=== PATIENT | male | born 1940 | race Caucasian/White ===

== ENCOUNTER 2023-11-25 23:45 | Emergency (ER) | payer MEDICARE, BC, SELFPAY ==
[2023-11-26 00:01] VITALS: BP 146/82
[2023-11-26 00:50] LABS: % Basophils 0.6 % (0-2); % Eosinophils 1.8 % (0-6); % Immature Granulocytes 1.2 % (0-0.5); % Lymphocytes 15.2 % (20.5-51.1); % Monocytes 4.6 % (1.7-9.3); % Neutrophils 76.6 % (42.2-75.2); Absolute Basophils 0.1 10^3/uL (0-0.2); Absolute Eosinophils 0.2 10^3/uL (0-0.7); Absolute Immature Granulocytes 0.2 10^3/uL (0-0.05); Absolute Lymphocytes 1.9 10^3/uL (1.2-3.4); Absolute Monocytes 0.6 10^3/uL (0.1-0.6); Absolute Neutrophils 9.7 10^3/uL (1.4-6.5); Hematocrit 38.1 % (39.0-52.0); Hemoglobin 13.7 g/dL (13.0-18.0); Mean Corpuscular Hgb 32.9 pg (27.0-31.0); Mean Corpuscular Volume 91.6 fL (80.0-94.0); Mean Platelet Volume 10.2 fL (7.4-10.4); Nucleated Red Blood Cells % 0 % (-); Platelet Count 178 10^3/uL (130-400); Red Blood Cell Count 4.16 10^6/uL (4.70-6.10); Red Cell Dist. Width 13.9 % (11.5-14.5); White Blood Cell Count 12.7 10^3/uL (4.8-10.8)
[2023-11-26 01:00] LABS: ALT (SGPT) 23 U/L (0-50); AST (SGOT) 23 U/L (17-59); Albumin 4.1 g/dl (3.5-5.0); Alkaline Phosphatase 176 U/L (38-126); Blood Urea Nitrogen 28 mg/dl (9-20); Calcium 9.5 mg/dl (8.4-10.2); Carbon Dioxide 26 mmol/L (22-30); Chloride 104 mmol/L (98-107); Glucose 262 mg/dl (70-99); Lipase 119 U/L (23-300); Potassium 3.1 mmol/L (3.5-5.1); Sodium 138 mmol/L (135-145); Total Protein 6.5 g/dl (6.3-8.2); eGFR 46.19
[2023-11-26 03:48] VITALS: BP 119/77
[2023-11-26 04:00] VITALS: BP 141/82
[2023-11-26 04:09] VITALS: BMI 31.3
[2023-11-26 04:30] LABS: Troponin I < 0.012 ng/ml
[2023-11-26 05:00] VITALS: BP 115/58
--- NOTE | 2023-11-26 05:12 | ED.GENMED ---
History of Present Illness
General
Chief Complaint: Abdominal Symptoms
Source: patient and previous radiology exam (Previous CT abdomen pelvis 2021 showing chronic dissection of infrarenal abdominal aorta with mild aneurysmal dilation of 3 cm, stable and unchanged from previous 2018. Also note of cholelithiasis)
Exam Limitations: none
Time Seen by Provider: 11/26/23 04:58
Nursing documentation reviewed up to this point in time: agreed with
Travel History
Have you had any contact with someone who has COVID-19?: No
Do you have any symptoms of coronavirus? Fever > 100 degrees, chills, cough, shortness of breath, sore throat, loss of taste or smell, muscle aches, or headache?: No
History of Present Illness
History of Present Illness:
This is an 83-year-old gentleman who resides at home. 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 Wade and thus far
unchanged over the past 5 to 6 years.
He presents with somewhat abrupt onset of moderate to severe epigastric abdominal pain that began around 10/11 PM tonight while reclining in his lounger. Pain was nonradiating and no associated symptoms. He did pass a normal bowel movement and
then shortly after that passed a loose nonbloody stool. He states he also made himself throw up and attempt to relieve the pain which was unsuccessful.
After doing so he has had no recurrent vomiting and no recurrent diarrhea. Epigastric pain has persisted but slowly resolved while waiting in the waiting room.
He admits to 2 similar episodes of epigastric pain in 2018 and then again 2021.
ED record reviewed from 2018, CAT scan at that time showed paraesophageal hiatal hernia. He was evaluated by general surgery but pain had resolved, no indication for surgical intervention and he was discharged home with no return of pain until 2021
while in [place]. He reports uneventful ED evaluation at that time, discharged to home.
On CT abdomen pelvis 2018 and then again 2021 there is note of several calcified gallstones.
Past History
Past History
ED Past Medical History: CAD, CVA (TIA), HTN, NIDDM and Other (Borderline Diabetes ); Negative [place]
ED Past Surgical History: Cardiac (Stents)
Social History
Tobacco: Non-smoker
Alcohol: Occasional
Drug: None
Personal:
Living: with family
Employment: Retired
Family History
Family History: CAD
Phy Exam
Physical Exam
Physical Exam:
GENERAL: 83-year-old gentleman appears his stated age, bright and alert, pleasant, appears in no acute distress.
EYE: anicteric
NECK: Supple, nontender, no meningismus, no significant adenopathy.
ENT: oral mucosa is moist. No rhinorrhea.
CARDIAC: Regular rate and rhythm. no murmur.
LUNGS: Clear breath sounds bilaterally, no acute respiratory distress, no wheezes/rales/rhonchi
ABDOMEN: Soft, nondistended, without focal tenderness, no r/g, no cvat. normoactive BS.
NEUROLOGICAL: Alert and oriented x3, no focal neuro deficits. Gait is ugaled and steady.
SKIN: Warm and dry, normal color, skin intact. No rash.
MUSCULOSKELETAL: No C/C/E. peripheral pulses are full and equal b/l. No palpable tenderness.
PSYCH: Normal and appropriate interaction.
Course
Orders/Labs/Results
Orders:
Orders
11/26/23 00:14
CMP [Comprehensive Metabolic Panel] Urgent
Complete Blood Count/With Diff Urgent
Lipase Urgent
11/26/23 03:50
Electrocardiogram (*1) Urgent
Reason for Study: Chest Pain
11/26/23 03:58
Troponin I Routine
11/26/23 05:10
Potassium Chloride [KCl] 20 meq PO NOW STA
Abnormal Lab Results
11/26/23
00:14
WBC 12.7 H 10^3/uL
(4.8-10.8)
RBC 4.16 L 10^6/uL
(4.70-6.10)
Hct 38.1 L %
(39.0-52.0)
MCH 32.9 H pg
(27.0-31.0)
Abs Immat Gran (auto) 0.2 H 10^3/uL
(0-0.05)
Absolute Neuts (auto) 9.7 H 10^3/uL
(1.4-6.5)
Immature Gran % 1.2 H %
(0-0.5)
Neutrophils % 76.6 H %
(42.2-75.2)
Lymphocytes % 15.2 L %
(20.5-51.1)
Potassium 3.1 L mmol/L
(3.5-5.1)
BUN 28 H mg/dl
(9-20)
Creatinine 1.5 H mg/dL
(0.7-1.3)
Glucose 262 H mg/dl
(70-99)
Alkaline Phosphatase 176 H U/L
(38-126)
11/26/23 00:14
11/26/23 00:14
Vital Signs
Initial and Last Documented VS:
Initial Vital Signs
Temp Pulse Resp BP Pulse Ox
97.5 F 92 24 146/82 98
11/26/23 00:01 11/26/23 00:01 11/26/23 00:01 11/26/23 00:01 11/26/23 00:01
Last Documented Vital Signs
Temp Pulse Resp BP Pulse Ox
97.5 F 89 22 130/76 97
11/26/23 00:01 11/26/23 05:52 11/26/23 05:52 11/26/23 05:52 11/26/23 05:45
MDM/Problems Addressed
Differential Diagnosis Includes:
Patient presents with acute epigastric abdominal pain that began around 10/11 PM.
Pain has since resolved.
Similar episodes of pain in 2018 and again 2021.
CT abdomen pelvis 2021 as well as 2018 does note cholelithiasis and epigastric abdominal pain may be acute biliary colic in nature. Other consideration is recurrent hiatal hernia, gastritis, gastroenteritis, ACS.
Labs show mildly elevated white blood cell count.
Creatinine is mildly elevated at 1.5, has trended up from 2018 of 1.0. Patient reports only vomiting once as well as only passing 1 loose stool and thus acute dehydration is unlikely.
Alkaline phosphatase is mildly elevated and was noted mildly elevated 2018.
Troponin which was drawn 3:30 this morning is negative. With onset of pain around 10 PM, negative troponin greater than 5 hours after onset of pain, ACS is unlikely.
EKG is similar and unchanged to previous from 2018.
Mild hypokalemia. Has been repleted orally.
I highly suspect patient has been suffering with rare intermittent episodes of biliary colic especially in light of elevated alkaline phosphatase.
He does admit to eating a fatty meal at 5 PM consisting of ham and cheese sandwich.
Other consideration is recurrent hiatal hernia/paraesophageal hernia but reassuring that he is now pain-free and comfortable.
He has known 3 cm infrarenal abdominal aortic aneurysm with chronic dissection, follows regularly with Dr. Wade with reported unchanged and surveillance ultrasounds. Current symptoms or not consistent with infrarenal abdominal aortic aneurysm and it
is reassuring that he remains hemodynamically stable, without hypertension or hypotension and is pain-free.
Would recommend he initiate a strict low-fat diet and will refer to general surgery for follow-up.
Chronic conditions affecting care: DM and HTN
*Pulse Oximetry
Patient hypoxic: no
*EKG
Interpreted by ED Provider?: Yes
Comparison EKG: no changes (Unchanged from previous 2018)
Rate: normal
Rhythm: sinus and PVC's
[place]: normal axis
Interval: normal interval
QRS Pattern: poor R-wave progression
Ischemia: no ischemia
*Associate Broker Interpretation
Rate: normal
Interpretation: normal
Rhythm: sinus and PVC's
*Critical Care Note
Total Time (30-74mins, 75-104mins- exclusive of procedures): Not Applicable
ED Attending Note
-
Portions of this chart may have been created with voice recognition software.� Occasional wrong word or��sound alike� substitutions may have occurred due to the inherent limitations of voice recognition software.
Discharge Plan
Departure
Patient Disposition: Home (Routine Discharge)
Date of Disposition: 11/26/23
Time of Disposition: 05:25
Patient with high blood pressure during this ER visit?: No
Condition: Good
Discharge Problem:
Acute biliary colic, Cholelithiases
Instructions: Low Cholesterol, Saturated Fat, and Trans Fat Diet , Gallstones (DC)
Prescriptions:
No Action
aspirin 81 MG tablet,delayed release (DR/EC)
81 mg PO HS
atorvastatin 40 MG tablet
40 mg PO QPM Qty: 30 6RF
metformin 500 MG tablet
500 mg PO BID Qty: 0 0RF
Rx Instructions:
Okay to resume Saturday.
carvedilol 3.125 MG tablet
3.125 mg PO BID Qty: 60 6RF
lisinopril 20 MG tablet
40 mg PO DAILY
amlodipine 10 MG tablet
10 mg PO DAILY
esomeprazole magnesium [Nexium] 40 MG capsule,delayed release(DR/EC)
40 mg PO DAILY
hydrochlorothiazide 25 MG tablet
25 mg PO DAILY
fluticasone propionate 1 SPRAY spray,suspension
1 spray intranasal DAILYPRN PRN (Reason: congestion)
Referrals:
Nbail Barry MD [Active] - Call in 1-3 days for appt
Brayden Montgomery MD [Family Provider] - Call in 1-3 days for appt
Interventions
Interventions:
*Risk Screen - Suicide Last Done: 11/26/23 00:01
*General Assessment Last Done: 11/26/23 03:30
*Neglect/Abuse Screening Last Done: 11/26/23 00:01
ED- Fall Risk Assessment Last Done: 11/26/23 03:30
*ED COVID-19 Vaccine History Last Done: 11/26/23 03:30
MX-Rozaum-Kvexbsvjpr Assessment Last Done: 11/26/23 03:30
[2023-11-26] MEDS: KCL 20 MEQ PO (05:51)
[2023-11-26 05:52] VITALS: BP 130/76
[2023-11-26 06:00] VITALS: BP 130/76
== END 2023-11-26 06:00 | disposition home or self-care (01) ==
LOC: EMR 23:45
PROVIDERS: EMERGENCY PHYSICIAN Emergency Medicine; FAMILY PHYSICIAN Family Medicine
DX: K80.50 Calculus of bile duct without cholangitis or cholecystitis without obstruction (principal); E11.9 Type 2 diabetes mellitus without complications; I10 Essential (primary) hypertension
CPT/HCPCS: 99284; 80053; 83690; 84484; 85025; 93005

== ENCOUNTER → 2024-01-28 12:47 | Outpatient (REF) | payer MEDICARE, BC, SELFPAY | LOC: HWRAD 12:47 | PROVIDERS: ATTENDING PHYSICIAN Student in an Organized Health Care Education/Training Program; FAMILY PHYSICIAN Family Medicine | DX: N17.9 Acute kidney failure, unspecified (principal) | CPT/HCPCS: 76770 ==

== ENCOUNTER 2024-09-06 11:50 | Emergency (ER) | payer MEDICARE, BC, SELFPAY ==
[2024-09-06 11:56] VITALS: BP 156/85
[2024-09-06 12:32] VITALS: BMI 28.8
[2024-09-06] MEDS: ZOFRAN 4 MG IV (12:40)
[2024-09-06] MEDS: DILAUDID 0.5 MG IV (12:40)
[2024-09-06] MEDS: NSS 500 IV (12:45)
[2024-09-06 12:57] LABS: % Basophils 0.5 % (0-2); % Immature Granulocytes 0.4 % (0-0.5); % Lymphocytes 18.5 % (20.5-51.1); % Monocytes 6.7 % (1.7-9.3); % Neutrophils 71.9 % (42.2-75.2); Absolute Basophils 0.1 10^3/uL (0-0.2); Absolute Eosinophils 0.2 10^3/uL (0-0.7); Absolute Monocytes 0.7 10^3/uL (0.1-0.6); Absolute Neutrophils 7.7 10^3/uL (1.4-6.5); Hematocrit 32.4 % (39.0-52.0); Hemoglobin 11.4 g/dL (13.0-18.0); Mean Corp Hgb Conc. 35.2 g/dL (33.0-37.0); Mean Corpuscular Hgb 34.1 pg (27.0-31.0); Mean Platelet Volume 10.2 fL (7.4-10.4); Nucleated Red Blood Cells % 0 % (-); Platelet Count 152 10^3/uL (130-400); Red Blood Cell Count 3.34 10^6/uL (4.70-6.10); Red Cell Dist. Width 14.1 % (11.5-14.5); White Blood Cell Count 10.7 10^3/uL (4.8-10.8)
[2024-09-06 13:08] LABS: ALT (SGPT) 24 U/L (0-50); AST (SGOT) 22 U/L (17-59); Albumin 4.4 g/dl (3.5-5.0); Alkaline Phosphatase 98 U/L (38-126); Blood Urea Nitrogen 28 mg/dl (9-20); Calcium 9.6 mg/dl (8.4-10.2); Carbon Dioxide 24 mmol/L (22-30); Chloride 105 mmol/L (98-107); Estimated Creatinine Clearance 29 ml/min; Glucose 183 mg/dl (70-99); Potassium 4.6 mmol/L (3.5-5.1); Sodium 144 mmol/L (135-145); Total Bilirubin 1.2 mg/dl (0.2-1.3); Total Protein 6.9 g/dl (6.3-8.2); eGFR 34.57
[2024-09-06] MEDS: DILAUDID 1 MG IV (13:20)
[2024-09-06 13:25] VITALS: BP 139/72
[2024-09-06 14:00] VITALS: BP 127/59
[2024-09-06 15:03] VITALS: BP 131/54
[2024-09-06 15:10] LABS: Urine Albumin 1+ (Neg - Trace); Urine Bilirubin Negative (Negative); Urine Character Clear (Clear); Urine Color Yellow; Urine Glucose 2+ (Negative); Urine Ketone Trace (Negative); Urine Leukocyte Negative (Negative); Urine Nitrite Negative (Negative); Urine Occult Blood 1+ (Negative); Urine Specific Gravity 1.015 (<1.030); Urine Urobilinogen Negative (Neg - 1+)
[2024-09-06 15:36] LABS: Urine Red Blood Cell 0-2 /HPF (0-2); Urine White Cell None Seen /HPF (0-5)
[2024-09-06 16:00] VITALS: BP 136/58
--- NOTE | 2024-09-06 16:27 | ED.GENMED ---
History of Present Illness
General
Chief Complaint: Flank Pain
Source: patient and family
Exam Limitations: none
Time Seen by Provider: 09/06/24 12:15
History of Present Illness
History of Present Illness:
This is an 84-year-old male who presents with left flank pain. pt states that 2 days ago he felt something there but was mild. last night pain became more severe. also reports urinary hesitancy. admits to nausea. no fevers. no injury. no cp. no sob.
no rash
Past History
Past History
ED Past Medical History: CAD, CVA (TIA), HTN, NIDDM and Other (Borderline Diabetes ); Negative [place]
ED Past Surgical History: Cardiac (Stents)
Social History
Tobacco: Non-smoker
Alcohol: Occasional
Drug: None
Personal:
Living: with family
Employment: Retired
Family History
Family History: CAD
Phy Exam
Physical Exam
Physical Exam:
CONSTITUTIONAL Patient alert and oriented to person, place and time. Well-appearing. Vital signs reviewed.
HEAD atraumatic, normocephalic.
EYES eyelids normal to inspection, Extraocular muscles intact, Conjunctiva normal, Sclera normal.
NECK normal range of motion, Trachea midline, no jugular venous distention.
RESPIRATORY CHEST No respiratory distress noted, Chest expansion equal, Bilateral breath sounds clear.
CARDIOVASCULAR regular rate and rhythm, Heart sounds normal.
ABDOMEN abdomen nontender, Bowel sounds normal. No distention.
BACK normal inspection, no obvious deformities, no rash. no CVA TTP
UPPER EXTREMITY range of motion normal, Motor strength normal, no cyanosis, no edema.
LOWER EXTREMITY range of motion normal, Motor strength normal, no cyanosis, no edema.
NEURO Speech normal, No focal motor deficits, Sree coma scale 15, Memory normal, Cranial Nerves intact to screening exam.
SKIN skin warm, dry, and normal in color.
Course
Orders/Labs/Results
Orders:
Orders
09/06/24 12:19
CT Abd/pel Without Iv Or Oral Urgent
Comment:
Reason For Exam: L flank pain
09/06/24 12:25
0.9% Sodium Chloride 500 ml [Nss] 500 ml IV BOLUS
HYDROmorphone [Dilaudid] 0.5 mg IV NOW STA
Ondansetron Injectable [Zofran] 4 mg IV NOW STA
09/06/24 12:40
Complete Blood Count/With Diff Urgent
Comprehensive Metabolic Panel Urgent
09/06/24 13:17
HYDROmorphone [Dilaudid] 1 mg IV NOW STA
09/06/24 13:18
HYDROmorphone [Dilaudid] 1 mg .ROUTE .STK-MED ONE
09/06/24 13:45
Electrocardiogram (*1) Stat
Reason for Study: Other
Other Reason for Exam: chest pain
EKG- Treatment ONCE
09/06/24 15:02
Urinalysis Reflex To Culture Urgent
Date Specimen was Collected: 09/06/24
Time Specimen was Collected: 15:01
Urine Microscopic Reflex Cult Urgent
09/06/24 16:52
Hydrocodone 5/APAP 325 [Jewett 5/325] 2 tablet PO NOW STA
Tamsulosin [Flomax] 0.4 mg PO NOW STA
Abnormal Lab Results
09/06/24 09/06/24
12:40 15:02
RBC 3.34 L 10^6/uL
(4.70-6.10)
Hgb 11.4 L g/dL
(13.0-18.0)
Hct 32.4 L %
(39.0-52.0)
MCV 97.0 H fL
(80.0-94.0)
MCH 34.1 H pg
(27.0-31.0)
Absolute Neuts (auto) 7.7 H 10^3/uL
(1.4-6.5)
Absolute Monos (auto) 0.7 H 10^3/uL
(0.1-0.6)
Lymphocytes % 18.5 L %
(20.5-51.1)
BUN 28 H mg/dl
(9-20)
Creatinine 1.9 H mg/dL
(0.7-1.3)
Glucose 183 H mg/dl
(70-99)
Urine Ketones Trace A
(Negative)
Ur Occult Blood Reflex 1+ A
(Negative)
Urine Glucose 2+ A
(Negative)
Urine Albumin (Reflex) 1+ A
(Neg - Trace)
09/06/24 12:40
09/06/24 12:40
Vital Signs
Initial and Last Documented VS:
Initial Vital Signs
Temp Pulse Resp BP Pulse Ox
98.1 F 91 18 156/85 100
09/06/24 11:56 09/06/24 11:56 09/06/24 11:56 09/06/24 11:56 09/06/24 11:56
Last Documented Vital Signs
Temp Pulse Resp BP Pulse Ox
98.2 F 90 20 135/61 98
09/06/24 17:02 09/06/24 17:02 09/06/24 17:02 09/06/24 17:02 09/06/24 17:02
MDM/Problems Addressed
MDM/Problems Addressed:
renal colic
*Radiology
Radiology exam reviewed: preliminary read by ED provider (suspected L hydroureter...d/w radiologist who agrees) and radiology read reviewed
*Pulse Oximetry
Patient hypoxic: no
*Media Professional Interpretation
Rate: normal
Interpretation: abnormal
Rhythm: sinus and PVC's
*Critical Care Note
Total Time (30-74mins, 75-104mins- exclusive of procedures): Not Applicable
Data Reviewed
Source: patient
Prescriptions/Medications Considered But Not Given:
considered abx but no fevers and ua ok
Patient Management
Discussion with other providers: Radiologist
Escalation/DeEscalation of care consider admission/obs:
acute L flank pain with nausea and urinary sx's. ? unseen stone vs passed stone. pain better on reevaluation. no gross blood in urine. pt will f/u with urology. no AAA. no cp.
ED Attending Note
-
Portions of this chart may have been created with voice recognition software.� Occasional wrong word or��sound alike� substitutions may have occurred due to the inherent limitations of voice recognition software.
Discharge Plan
Departure
Patient Disposition: Home (Routine Discharge)
Date of Disposition: 09/06/24
Time of Disposition: 16:27
Patient with high blood pressure during this ER visit?: No
Discharge Problem:
Renal colic, Acute renal insufficiency
Instructions: Renal Colic (DC), Narcotic Pain Medication
Prescriptions:
New
hydrocodone-acetaminophen 5-325 mg tablet
2 tab PO Q6H PRN (Reason: Pain) Qty: 14 0RF
tamsulosin [Flomax] 0.4 mg capsule
0.4 mg PO HS Qty: 20 0RF
No Action
aspirin 81 MG tablet,delayed release (DR/EC)
81 mg PO HS
atorvastatin 40 MG tablet
40 mg PO QPM Qty: 30 6RF
metformin 500 MG tablet
500 mg PO BID Qty: 0 0RF
Rx Instructions:
Okay to resume 01/13, Saturday.
carvedilol 3.125 MG tablet
3.125 mg PO BID Qty: 60 6RF
lisinopril 20 MG tablet
40 mg PO DAILY
amlodipine 10 MG tablet
10 mg PO DAILY
esomeprazole magnesium [Nexium] 40 MG capsule,delayed release(DR/EC)
40 mg PO DAILY
hydrochlorothiazide 25 MG tablet
25 mg PO DAILY
fluticasone propionate 1 SPRAY spray,suspension
1 spray intranasal DAILYPRN PRN (Reason: congestion)
Referrals:
Louis John MD [Active] -
Brayden Montgomery MD [Family Provider] -
Activity Restrictions/Additional Instructions:
Please see urology in follow-up in the next 48 hours. Further studies may be necessary. Return immediately for worsening pain, fevers, vomiting or any other concerns. Please have your doctor recheck your blood work in the next 2 weeks to ensure
your kidney function is improving and stable.
Interventions
Interventions:
*Risk Screen - Suicide Last Done: 09/06/24 13:00
*General Assessment Last Done: 09/06/24 13:00
*Neglect/Abuse Screening Last Done: 09/06/24 13:41
ED- Fall Risk Assessment Last Done: 09/06/24 13:41
*ED COVID-19 Vaccine History Last Done: 09/06/24 11:56
*Nursing Disposition Last Done: 09/06/24 17:02
QU-Usxuif-Gfpllvsrdo Assessment Last Done: 09/06/24 13:41
ED-Male Genitourinary Assessment Last Done: 09/06/24 13:41
Discharge Date and Time
Discharge Date/Time: 09/06/24 17:03
Print Language: MONEGASQUE
[2024-09-06] MEDS: FLOMAX 0.4 MG PO (16:56)
[2024-09-06] MEDS: NORCO 5/325 2 TABLET PO (16:56)
[2024-09-06 17:02] VITALS: BP 135/61
== END 2024-09-06 17:03 | disposition home or self-care (01) ==
LOC: EMR 11:50
PROVIDERS: EMERGENCY PHYSICIAN Emergency Medicine; FAMILY PHYSICIAN Family Medicine
DX: N23 Unspecified renal colic (principal); N28.9 Disorder of kidney and ureter, unspecified; I25.10 Atherosclerotic heart disease of native coronary artery without angina pectoris; I10 Essential (primary) hypertension; E11.9 Type 2 diabetes mellitus without complications; Z86.73 Personal history of transient ischemic attack (TIA), and cerebral infarction without residual deficits; Z95.5 Presence of coronary angioplasty implant and graft
CPT/HCPCS: 96374; 96375; 96376; 99284; 96361; 74176; 80053; 81003; 81015; 85025; 93005

== ENCOUNTER 2024-09-06 22:52 | Observation (INO) | payer MEDICARE, BC, SELFPAY ==
[2024-09-06 20:20] VITALS: BP 132/94
--- NOTE | 2024-09-06 20:44 | ED.GENMED ---
History of Present Illness
General
Chief Complaint: Flank Pain
Source: patient
Time Seen by Provider: 09/06/24 20:23
History of Present Illness
History of Present Illness:
84-year-old male presents emergent complaint of severe left flank pain. Patient developed the pain at 1 AM this morning. Pain is quite significant and associate with some nausea. Patient was seen here in the emergency room earlier today and had a
workup. CT without contrast was performed no real definitive cause of the patient's pain was identified however he was feeling better. Thought process was that he may have passed a kidney stone. However after returning home the patient's pain has
returned and is actually more severe than what it was earlier. No fever or chills. He feels some urinary hesitancy.
Past History
Past History
ED Past Medical History: CAD, CVA (TIA), HTN, NIDDM and Other (Borderline Diabetes ); Negative [place]
ED Past Surgical History: Cardiac (Stents)
Social History
Tobacco: Non-smoker
Alcohol: Occasional
Drug: None
Personal:
Living: with family
Employment: Retired
Family History
Family History: CAD
Phy Exam
Physical Exam
Physical Exam:
General: Awake, Alert, Oriented X3. No acute distress.
Vitals: unremarkable
Head: Atraumatic
Eyes: Pupils equal, EOMI
Throat: Airway intact, no exudates
Neck: Trachea midline
Lungs: Clear and equal b/l
Heart: Regular rate, no murmurs
Abd: Soft, Nontender, No pulsatile mass
Back: Left CVA tenderness to percussion
Neuro: Nonfocal
Skin: Warm, dry, no rash
Extremities: pulses equal b/l, no edema
Course
Orders/Labs/Results
Orders:
Orders
09/06/24 Dinner
Regular
09/06/24 20:38
HYDROmorphone [Dilaudid] 0.5 mg IV NOW STA
09/06/24 20:44
CT Abd/pelvis W Iv Cont Urgent
Comment:
Reason For Exam: severe left flank pain, ? renal infarct
09/06/24 21:37
HYDROmorphone [Dilaudid] 0.5 mg IV NOW STA
Ondansetron Injectable [Zofran] 4 mg IV NOW STA
09/06/24 22:39
Admit/Transfer Patient As Directed
Co-Sign Provider:
Level of Care: Observation services
Assign to:: Medical/Surgical
Physician / Group: deyanira
Diagnosis: left flank pain
PRN Pain Medication Management As Directed
May give lesser potent ordered pain med per pt: Yes
preference::
Protocol:: Medication orders for pain may be administered in a
manner that supports deferring to patient preference
when the pt is:
- Requesting an ordered lesser potent pain medication.
Least to most potent pain medications are defined
as: acetaminophen < NSAID < tramadol < opioids
(morphine, oxycodone, hydromorphone).
- Requesting a lesser dose of the same medication IF
ORDERED.
- Requesting a less intrusive route of administration
if both routes are prescribed by the provider (PO <
IV).
09/06/24 22:40
Code Status As Directed
Resuscitation Status: Do not resuscitate
Reached after discussion with pt or family/Healthcare POA: Yes
DNR Bracelet Application ONCE
09/06/24 23:37
0.9% Sodium Chloride 1000 ml [Nss] 1,000 ml IV 100 mls/hr
Dextrose 50%-Water [Dextrose 50% Syringe] 12.5 grams IV [id number] PRN
Glucagon [GlucaGen] 1 mg IM PRN PRN
HYDROmorphone [Dilaudid] 0.5 mg IV Q4HPRN PRN
Ondansetron Injectable [Zofran] 4 mg IV Q6HPRN PRN
09/06/24 23:37
UROLOGY CONSULT Routine
Consulting Provider: Louis John
Was physician already notified: Yes
Activity As Directed
Activity Level: As Tolerated
Bedside Glucose Monitoring As Directed
Frequency: AC&HS
Additional Instructions:: Change to q6h if pt on TPN, tube feeding or not eating
Vital Signs As Directed
Frequency: Per unit guidelines
DX Deep Vein Thrombosis Video Routine
09/07/24 06:00
Complete Blood Count/With Diff IN AM
Comprehensive Metabolic Panel IN AM
Glycohemoglobin (HgbA1c) IN AM
09/07/24 07:30
Insulin Aspart Corrective Low [Novolog Flexpen-Low Resistance] See Protocol SC AC
09/07/24 08:00
Carvedilol [Coreg] 3.125 mg PO BID
Heparin 5,000 units SC Q12
Pantoprazole [Protonix] 40 mg PO DAILY
09/07/24 18:00
Atorvastatin [Lipitor] 40 mg PO QPM
09/07/24 22:00
Aspirin Low Dose EC [Aspir Low (Enteric Coated)] 81 mg PO HS
Vital Signs
Initial and Last Documented VS:
Initial Vital Signs
Temp Pulse Resp BP Pulse Ox
98.9 F 62 18 132/94 99
09/06/24 20:20 09/06/24 20:20 09/06/24 20:20 09/06/24 20:20 09/06/24 20:20
Last Documented Vital Signs
Temp Pulse Resp BP Pulse Ox
97.4 F 101 20 135/81 97
09/06/24 23:46 09/06/24 23:46 09/06/24 23:46 09/06/24 23:46 09/06/24 23:46
MDM/Problems Addressed
Differential Diagnosis Includes:
Kidney stone, renal infarct, musculoskeletal pain, ureteral obstruction from stricture, mass
MDM/Problems Addressed:
Patient presents to the emergency room after just being discharged a short while ago. He has severe pain again. Workup reviewed from ER visit. Concerned that the patient might have a renal infarct as when I reviewed his CT from earlier there does
appear to be extensive atherosclerotic disease of the aorta particularly near the renal artery origin. Therefore a CT with IV contrast was obtained. Fortunately there is no renal infarct but delayed images show there is no excretion of contrast on
the left kidney. Suspect this indicates some sort of ureteral obstruction. Patient will be hospitalized for pain control and further evaluation
*Pulse Oximetry
Patient hypoxic: no
*Critical Care Note
Total Time (30-74mins, 75-104mins- exclusive of procedures): Not Applicable
ED Attending Note
-
Portions of this chart may have been created with voice recognition software.� Occasional wrong word or��sound alike� substitutions may have occurred due to the inherent limitations of voice recognition software.
Discharge Plan
Departure
Patient Disposition: Admit
Date of Disposition: 09/06/24
Time of Disposition: 22:17
Presentation/result/management discussed w/ accepting MD/DO: Hospitalist
Condition: Fair
Discharge Problem:
Acute left flank pain, Hydronephrosis, left
Interventions
Interventions:
*Risk Screen - Suicide Last Done: 09/06/24 20:20
*General Assessment Last Done: 09/06/24 20:45
*Neglect/Abuse Screening Last Done: 09/06/24 20:20
ED- Fall Risk Assessment Last Done: 09/06/24 23:47
*ED COVID-19 Vaccine History Last Done: 09/06/24 20:45
*Nursing Disposition Last Done: 09/06/24 23:47
VM-Tztiak-Hxevoryarl Assessment Last Done: 09/06/24 20:45
ED-Male Genitourinary Assessment Last Done: 09/06/24 20:45
Discharge Date and Time
Discharge Date/Time: 09/06/24 23:47
[2024-09-06 20:45] VITALS: BMI 30.3
[2024-09-06 20:54] VITALS: BP 145/80
[2024-09-06] MEDS: DILAUDID 0.5 MG IV ×2 (20:54→21:48)
[2024-09-06 21:00] VITALS: BP 137/63
[2024-09-06] MEDS: ZOFRAN 4 MG IV (21:48)
[2024-09-06 22:00] VITALS: BP 127/57
--- NOTE | 2024-09-06 22:45 | HPS.HSE ---
Family Physician
-
Family Physician: Brayden Montgomery
Chief Complaint
-
left flank pain
History of Present Illness
84-year-old male past medical history of CAD status post stent, hypertension, diabetes, CVA, presenting with severe left flank pain. Patient developed pain at 1 AM this morning associate with some nausea and vomiting. Was seen in the emergency
room earlier today had CT scan which showed no definitive cause for patient's pain. Patient was feeling better and it was thought that he passed a kidney stone. After returning home patient's pain returned and more severe than it was earlier. He
denies any fevers or chills. He does have some urinary hesitancy but denies frequency or burning with urination or blood in the urine.
He states that he had similar pain 3 days ago and felt a pop as if something gave way in his left flank with improvement in the pain at that time.
He drinks alcohol occasionally. Denies smoking.
Medical History
Past Medical History
Past Medical History: Reports Other (CAD status post stent, hypertension, diabetes, CVA,)
Past Surgical History: Reports None
Social History
Tobacco: Non-smoker
Alcohol: Occasional
Drug: None
Family History
Family History: Other (son with kidney stones )
Allergies / Home Medications
Allergies reflects when Allergies were last updated in [employer].
Home Medications with original date entered in [employer]
Allergy/Medication List:
Allergies
Allergy/AdvReac Type Severity Reaction Status Date / Time
Penicillins Allergy Unknown Verified 09/06/24 12:00
Home Medications
aspirin 81 mg tablet,delayed release 81 mg PO HS 01/10/16
atorvastatin 40 mg tablet 40 mg PO QPM ##30 01/13/16
carvedilol 3.125 mg tablet 3.125 mg PO BID #60 tabs 01/13/16
metformin 500 mg tablet 500 mg PO BID ##0 01/13/16
amlodipine 10 mg tablet 10 mg PO DAILY 11/06/17
esomeprazole magnesium 40 mg capsule,delayed release (Nexium) 40 mg PO DAILY 11/06/17
fluticasone propionate 50 mcg/actuation nasal spray,suspension 1 spray intranasal DAILYPRN PRN congestion 11/06/17
hydrochlorothiazide 25 mg tablet 25 mg PO DAILY 11/06/17
lisinopril 20 mg tablet 40 mg PO DAILY 11/06/17
hydrocodone 5 mg-acetaminophen 325 mg tablet 2 tab PO Q6H PRN Pain #14 tabs 09/06/24
tamsulosin 0.4 mg capsule (Flomax) 0.4 mg PO HS #20 caps 09/06/24
Review of Systems
-
History Source: Patient
A 12 point ROS was completed and negative except as noted: Yes
Constitutional: Reports No Symptoms
EENT: Reports No Symptoms
Respiratory: Reports No Symptoms
Cardiac: Reports No Symptoms
Abdomen/GI: Reports No Symptoms
: Reports See HPI
Musculoskeletal: Reports No Symptoms
Skin: Reports No Symptoms
Neurological: Reports No Symptoms
Endocrine: Reports No Symptoms
Hematologic/Lymphatic: Reports No Symptoms
Psych: Reports No Symptoms
Physical Exam
Vital Signs
Vital Signs
Temp Pulse Resp BP Pulse Ox
98.9 F 62 18 127/57 88
09/06/24 20:20 09/06/24 20:20 09/06/24 20:20 09/06/24 22:00 09/06/24 22:00
Physical Exam
General: Well Developed, Well Nourished and No Apparent Distress
HEENT: NormoCephalic, Moist mucous membranes and Atraumatic
Respiratory: Clear
Cardiac: S1/S2 and Regular Rhythm; No Murmur or Rub
GI: Soft, Non Tender, Non Distended and Normal Bowel Sounds; No Organomegaly
Rectal: Deferred by Provider
Genito-urinary: Costovertebral angle tend (left )
Musculoskeletal: No Clubbing, No Cyanosis and No Edema
Skin: No Rash
Neuro: Nonfocal/grossly intact
Data Reviewed
-
Lab Data: Labs Reviewed by me
Old Records: Reviewed
Impression/Plan
-
IMPRESSION:
PLAN:
# Severe left flank pain/urinary hesitancy unclear etiology possibly passed stone versus urethral stricture versus neoplasm
-CT abdomen pelvis shows mild left hydroureteronephrosis and left perinephric/periureteral inflammatory fat stranding clear urology, no evidence for obstructing ureteric calculus. Could be secondary to recently passed calculus or ascending urinary
tract infection versus occult distal ureteral stricture or neoplasm. No evidence of pyelonephritis, perinephric fluid collection or renal infarct
-UA unremarkable
-N.p.o.
-IV fluids
-Dilaudid, Zofran
-Urology consulted
# STEVIE on CKD
-Creatinine 1.9 from 1.5 previously
-IV fluids
-Hold hydrochlorothiazide, lisinopril, metformin
CAD with history of stents
-Continue aspirin, statin
Essential hypertension
-Continue Coreg
-No longer on amlodipine
Type 2 diabetes
-Hold metformin
-Insulin sliding scale
History of CVA
GERD
-Continue PPI
DNR/DNI
DVT prophylaxis�SCDs
Regular diet
[2024-09-06 23:00] VITALS: BP 126/58
[2024-09-06 23:46] VITALS: BP 135/81; BMI 28.7
[2024-09-07] MEDS: FLUSH (NSS) 1 FLUSH IV (00:10)
[2024-09-07] MEDS: NSS 1000 IV ×2 (00:11→15:53)
[2024-09-07 00:22] LABS: Glucose - Point of Care 135 mg/dl (70-99)
[2024-09-07 07:30] VITALS: BP 135/59
[2024-09-07 08:02] LABS: % Basophils 0.3 % (0-2); % Eosinophils 1.4 % (0-6); % Immature Granulocytes 0.5 % (0-0.5); % Lymphocytes 18.1 % (20.5-51.1); % Monocytes 8.8 % (1.7-9.3); % Neutrophils 70.9 % (42.2-75.2); Absolute Eosinophils 0.2 10^3/uL (0-0.7); Absolute Immature Granulocytes 0.1 10^3/uL (0-0.05); Absolute Neutrophils 7.7 10^3/uL (1.4-6.5); Hematocrit 30.1 % (39.0-52.0); Hemoglobin 9.7 g/dL (13.0-18.0); Mean Corp Hgb Conc. 32.2 g/dL (33.0-37.0); Mean Corpuscular Hgb 32.4 pg (27.0-31.0); Mean Corpuscular Volume 100.7 fL (80.0-94.0); Mean Platelet Volume 9.9 fL (7.4-10.4); Nucleated Red Blood Cells % 0 % (-); Platelet Count 134 10^3/uL (130-400); Red Blood Cell Count 2.99 10^6/uL (4.70-6.10); Red Cell Dist. Width 14.1 % (11.5-14.5); White Blood Cell Count 10.8 10^3/uL (4.8-10.8)
[2024-09-07 08:15] LABS: Glucose - Point of Care 111 mg/dl (70-99)
--- NOTE | 2024-09-07 08:30 | CONS.URO ---
Consultation
-
Date/Time Consultation Performed: 09/07/2024 0835
Performing Provider: Alvaro
Medical History
History of Present Illness
84-year-old male who presents with left flank pain. 3 days ago he felt mildly, then last night pain became more severe.
some voiding hesitancy but no urgency/frequency/dysuria
no hematuria
no known stone hx
Past Medical History
Past Medical History: Other (CAD status post stent, hypertension, diabetes, CVA)
Past Surgical History: None
Allergies/Home Medications
Allergies
Allergy/AdvReac Type Severity Reaction Status Date / Time
Penicillins Allergy Unknown Verified 09/06/24 12:00
Home Medications
�Medication �Instructions �Recorded �Confirmed �Type
aspirin 81 mg tablet,delayed 81 mg PO HS 01/10/16 11/06/17 History
release
atorvastatin 40 mg tablet 40 mg PO QPM ##30 01/13/16 11/06/17 Rx
carvedilol 3.125 mg tablet 3.125 mg PO BID #60 tabs 01/13/16 11/06/17 Rx
metformin 500 mg tablet 500 mg PO BID ##0 01/13/16 11/06/17 Rx
amlodipine 10 mg tablet 10 mg PO DAILY 11/06/17 11/06/17 History
esomeprazole magnesium 40 mg 40 mg PO DAILY 11/06/17 11/06/17 History
capsule,delayed release (Nexium)
fluticasone propionate 50 1 spray intranasal DAILYPRN PRN 11/06/17 11/06/17 History
mcg/actuation nasal congestion
spray,suspension
hydrochlorothiazide 25 mg tablet 25 mg PO DAILY 11/06/17 11/06/17 History
lisinopril 20 mg tablet 40 mg PO DAILY 11/06/17 11/06/17 History
hydrocodone 5 mg-acetaminophen 325 2 tab PO Q6H PRN Pain #14 tabs 09/06/24 Rx
mg tablet
tamsulosin 0.4 mg capsule (Flomax) 0.4 mg PO HS #20 caps 09/06/24 Rx
Physical Exam
Vital Signs
Vital Signs
Temp Pulse Resp BP Pulse Ox
98.1 F 63 16 135/59 100
09/07/24 07:30 09/07/24 07:30 09/07/24 07:30 09/07/24 07:30 09/07/24 07:30
Lab / Testing Results
Laboratory Results
09/07/24 07:49
Physical Exam
adult male in bed
General: Well Developed, Well Nourished and No Apparent Distress
HEENT: Normocephalic
GI: Soft and Non Tender
Genito-urinary: No Costovertebral Tend
Skin: Warm
Neuro: Awake, Alert and Oriented
Psych: Calm and Intact Judgement
Assessment / Plan
-
Left ureterectasis with pain
no stone
no hematuria
Rec:
non-urgent left ureteroscopy -- can be arranged for performance on an outpatient basis; if pt reamins an in-patient through Saturday, would put on that day's OR schedule
Data Reviewed
-
CT Scan: Image personally visualized and interpreted
Lab Data: Labs Reviewed
Old Records: Reviewed
[2024-09-07 09:09] LABS: ALT (SGPT) 19 U/L (0-50); AST (SGOT) 18 U/L (17-59); Albumin 3.5 g/dl (3.5-5.0); Alkaline Phosphatase 67 U/L (38-126); Blood Urea Nitrogen 24 mg/dl (9-20); Calcium 8.7 mg/dl (8.4-10.2); Carbon Dioxide 24 mmol/L (22-30); Chloride 106 mmol/L (98-107); Estimated Creatinine Clearance 30 ml/min; Glucose 114 mg/dl (70-99); Sodium 143 mmol/L (135-145); Total Protein 5.8 g/dl (6.3-8.2); eGFR 36.89
[2024-09-07 09:16] LABS: Glycohemoglobin (HgbA1c) 5.9 % (4.0-5.6)
--- NOTE | 2024-09-07 09:16 | W.PN.HOSP.TC ---
Today's Communication/Plan
-
Repeat BMP at 2 PM
Discharge if creatinine continues to improve
Follow-up with urology in the office
Assessment / Plan
Assessment / Plan
HPI: 84-year-old male past medical history of CAD status post stent, hypertension, diabetes, CVA, presenting with severe left flank pain. Patient developed pain at 1 AM this morning associate with some nausea and vomiting. Was seen in the
emergency room earlier today had CT scan which showed no definitive cause for patient's pain. Patient was feeling better and it was thought that he passed a kidney stone. After returning home patient's pain returned and more severe than it was
earlier. He denies any fevers or chills. He does have some urinary hesitancy but denies frequency or burning with urination or blood in the urine.
# Severe left flank pain/urinary hesitancy unclear etiology possibly passed stone versus urethral stricture versus neoplasm
-CT abdomen pelvis shows mild left hydroureteronephrosis and left perinephric/periureteral inflammatory fat stranding clear urology, no evidence for obstructing ureteric calculus. Could be secondary to recently passed calculus or ascending urinary
tract infection versus occult distal ureteral stricture or neoplasm. No evidence of pyelonephritis, perinephric fluid collection or renal infarct
-Appreciate urology input, recommend nonurgent left ureteroscopy outpatient. Suspect passed stone
-Patient is pain-free currently, medically stable for discharge today if creatinine continues to improve
# STEVIE on CKD
-Creatinine 1.8, was 1.9 from 1.5 previously
-IV fluids, repeat BMP at 2pm today
-Hold hydrochlorothiazide, lisinopril, metformin
-Avoid NSAIDs
CAD with history of stents
-Continue aspirin, statin
Essential hypertension
-Continue Coreg
-No longer on amlodipine
Type 2 diabetes
-Hold metformin
-Insulin sliding scale
History of CVA
GERD
-Continue PPI
DNR/DNI
DVT prophylaxis�SCDs
Regular diet
Total time spent to see the patient on the floor, examine the patient, review data and lab results, discuss treatment plan with patient, nursing staff around 35 minutes.
Physical Exam
General: No acute distress
HEENT: Normocephalic, Atraumatic, EOMI, MMM
Respiratory: Clear to Auscultation bilaterally
Cardiac: Normal S1/S2, Regular Rate and Rhythm
GI: Soft, Nontender, Nondistended, Normal Bowel Sounds
Extremities: No Clubbing, Cyanosis, or Edema
Neuro: Nonfocal/Grossly Intact
Psych: Calm, Cooperative
Derm: No Visible lesions
Anticipated Discharge: Today
Subjective/Interval History
-
Date of Service: September 07, 2024
Left flank pain resolved. No nausea, no vomiting. No dysuria. No fever.
Objective Data
-
Labs:
Laboratory Results
09/07/24
07:49
WBC 10.8
Hgb 9.7 L
Hct 30.1 L
Plt Count 134
Sodium 143
Potassium 4.0
Chloride 106
Carbon Dioxide 24
BUN 24 H
Creatinine 1.8 H
Glucose 114 H
Calcium 8.7
Total Bilirubin 1.0
AST 18
ALT 19
Alkaline Phosphatase 67
Vital Signs:
Vital Signs
Temp Pulse Resp BP Pulse Ox
98.1 F 63 16 135/59 100
09/07/24 07:30 09/07/24 07:30 09/07/24 07:30 09/07/24 07:30 09/07/24 07:30
I&O
09/06/24 09/07/24 09/08/24
06:59 06:59 06:59
Intake Total 940 / 940
Output Total 325 / 325
Balance 615 / 615
[2024-09-07] MEDS: PROTONIX 40 MG PO (09:45)
[2024-09-07] MEDS: HEPARIN 5000 UNITS SC (09:45)
[2024-09-07] MEDS: COREG 3.125 MG PO (09:45)
--- NOTE | 2024-09-07 12:47 | CM ---
Addendum entered by Nj Bernal 09/07/24 16:20:
Discharge order noted. Pt is aware and he stated his son will transport home.
D/C plan: home no needs.
Original Note:
CM following re: discharge planning.
Reviewed pt's chart, met with pt.
Pt is an 84 year old male, admitted with OBS status and primary dx of Left flank pain. OBS status explained to the pt. [place] letter signed, placed on chart, pt has a copy.
Pt reports he lives alone in a 2SH, 1 step to enter, has 2 supportive living children. Pt reports that 2019 was a bad year for him, both his and his daughter . Emotional support offered and provided. Pt described himself as
independent in all areas [employer], drives.
PCP: Brayden Montgomery
Pharmacy: [facility]
D/C plan: home with anticipated no needs. Pt stated his son will transport home at discharge.
CM will follow with discharge plan updates as hospitalization progresses
[2024-09-07 13:02] LABS: Glucose - Point of Care 136 mg/dl (70-99)
--- NOTE | 2024-09-07 14:19 | W.DCSUMMARY ---
Discharge Summary
Discharge Data
Date of Admission: 09/06/24
Date of Discharge: 09/07/24
-
Pending Results: No
Hospital Course
Discharge diagnosis:
Left ureterectasis with pain
Stage 3�4 chronic kidney disease
Coronary artery disease
Controlled type 2 diabetes
Essential hypertension
History of stroke
Gastroesophageal reflux disease
CT abd/pelvis:
Mild left hydroureteronephrosis and left perinephric/periureteral inflammatory fat stranding, which is of uncertain etiology. No evidence for an obstructing ureteral calculus. Findings again could be secondary to a recently passed calculus or an
ascending urinary tract infection. An occult distal ureteral stricture or neoplasm could also be considered. No CT evidence for pyelonephritis, perinephric fluid collection, or renal infarct.
Hospital course:
84-year-old male with a past medical history of CAD, CVA, GERD, hypertension, stage 3�4 chronic kidney disease, and type 2 diabetes presents with a 3-day history of left-sided flank pain. First it was mild, then it became severe, prompting him to
come to the ER. It has since resolved. CT of the abdomen and pelvis shows left-sided hydroureteronephrosis, no stone.
Patient was seen in conjunction with urology. His left-sided flank pain completely resolved. Urology recommends nonurgent left ureteroscopy, which can be arranged outpatient.
Patient also has chronic kidney disease. His creatinine was 1.9 upon admission, his last creatinine was 1.5 in November 2023. Discussed with nephrology who sees him outpatient, his creatinine can run as high as 2.0. This is his baseline.
Nephrology recommends outpatient follow-up. He has been counseled to avoid all [id number] NSAIDs. Nephrology recommends repeat BMP in 3 days since he received contrast, lab slip provided. He has been instructed to hold his metformin for 3
days upon discharge.
Patient's blood pressure was 120/57 on only Coreg. His lisinopril and hydrochlorothiazide were held while he was in the hospital. His lisinopril dose was also reduced from 40 mg daily to 20 mg daily. Hydrochlorothiazide was discontinued.
Patient is medically stable for discharge. He needs to follow-up with his primary care doctor in 1 week, and urology as well as nephrology in 2-3 weeks.
Disposition: Home self-care
Discharge planning: Required 46 minutes
Discharge Plan
-
Patient Disposition: Home (Routine Discharge)
Discharge Diagnosis/Procedures: Left flank pain, left hydroureteronephrosis, chronic kidney disease, hypertension, coronary artery disease, type 2 diabetes
Condition: Good
Diet: Diabetic, Carb Controlled
Activity: As tolerated
Driving Restrictions: As prior to admission
Blood Work: BMP on 09/10/24, lab slip provided
Activity Restrictions/Additional Instructions:
Please avoid all [id number] NSAID medications such as ibuprofen, naproxen, Aleve, Motrin, Advil.
These medications will worsen your kidney function.
Nephrology recommends stopping hydrochlorothiazide, and reducing lisinopril to 20 mg daily.
Please follow-up with your primary care doctor in 1 week, and urology as well as nephrology in 2-3 weeks.
Referrals:
Louis John MD [Active] - (call to schedule 'Left Ureteroscopy')
Brayden Montgomery MD [Family Provider] - in one week
Gerri Boyd MD [Active] - in two to three weeks
Prescriptions:
Continued
aspirin 81 MG tablet,delayed release (DR/EC)
81 mg PO HS
esomeprazole magnesium [Nexium] 40 MG capsule,delayed release(DR/EC)
40 mg PO DAILY@1700
rosuvastatin 40 mg tablet
40 mg PO HS
Changed
lisinopril 40 mg tablet
20 mg PO DAILY Qty: 0 0RF
Held
metformin 500 MG tablet
500 mg PO BID
Hold Instructions: Resume on 09/10/24.
Discontinued
hydrochlorothiazide 25 MG tablet
25 mg PO DAILY
No Action
hydrocodone-acetaminophen 5-325 mg Tablet
2 tab PO Q6HPRN PRN (Reason: severe pain)
carvedilol 3.125 MG tablet
3.125 mg PO BID
Discharge Orders:
Discharge Patient (As Directed); Ordered 09/07/24
Ordered By: Juan Antonio Ibarra
Discharge Date and Time
Discharge Date/Time: 09/07/24 18:36
Print Language: [place]
[2024-09-07 14:44] LABS: Blood Urea Nitrogen 24 mg/dl (9-20); Calcium 8.8 mg/dl (8.4-10.2); Carbon Dioxide 27 mmol/L (22-30); Chloride 105 mmol/L (98-107); Estimated Creatinine Clearance 29 ml/min; Glucose 126 mg/dl (70-99); Sodium 140 mmol/L (135-145); eGFR 34.57
--- NOTE | 2024-09-07 15:44 | W.CON.NEPH ---
Consultation
-
Date/Time Consultation Requested: 09/07/241539
Date/Time Consultation Performed: 09/07/24 1545
Requesting Provider: Ghulam Duong DO
Performing Provider: Gerri Gonzalez
Reason for Consultation: CKD
Medical History
-
Chief Complaint: left abd pain
History of Present Illness:
84-year-old male past medical history of CAD status post stent on ASA, hypertension coreg, ACEI, diabetes metformin, CKD stage3 baseline cr 1.8-2(saw Dr Pascual and refer to for ureterocele in January which he did not), sub nephrotic proteinuria
1.6gm/gm of cr, CVA, GERD on PPI, HLD on statin presented with severe left flank pain on 09/06. Patient developed pain at 1 AM of associate with some nausea and vomiting. Was seen in the emergency room and had CT scan which showed no
definitive cause for patient's pain. Patient was feeling better and it was thought that he passed a kidney stone. After returning home patient's pain returned and more severe than it was earlier. He denies any fevers or chills. He does have some
urinary hesitancy but denies frequency or burning with urination or blood in the urine. He states that he had similar pain 3 days ago and felt a pop as if something gave way in his left flank with improvement in the pain at that time. Saw CHERRI this am
and recommends non urgent left ureteroscopy. HIs cr on admit was at 1.9 hence nephrology consulted for CKD management.
Has mild nausea, no vomiting. No CP or sob. No Edema. No prior h/o K stones.
Past Medical History
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
Past Surgical History: Other (CAD stent, Back surg)
Social History
Tobacco: Non-Smoker
Alcohol: Occasional
Drug: None
Personal:
Living: Alone
Family History
no CKD
Family History: Not Pertinent
Allergies / Home Medications
Allergy/AdvReac Type Severity Reaction Status Date / Time
Penicillins Allergy Unknown Verified 09/06/24 12:00
�Medication �Instructions �Recorded �Confirmed �Type
aspirin 81 mg tablet,delayed 81 mg PO HS Blood Clot 01/10/16 09/07/24 History
release Prevention/Tx
carvedilol 3.125 mg tablet 3.125 mg PO BID #60 tabs 01/13/16 09/07/24 Rx
esomeprazole magnesium 40 mg 40 mg PO DAILY@1700 takes 1 hour 11/06/17 09/07/24 History
capsule,delayed release (Nexium) before dinne
hydrochlorothiazide 25 mg tablet 25 mg PO DAILY Blood Pressure 11/06/17 09/07/24 History
lisinopril 40 mg tablet 40 mg PO DAILY Blood Pressure 09/07/24 09/07/24 History
metformin 500 mg tablet 500 mg PO BID Diabetes 09/07/24 09/07/24 History
rosuvastatin 40 mg tablet 40 mg PO HS High Cholesterol 09/07/24 09/07/24 History
Review of Systems
-
All complete 12 point ROS have been inquired and found negative other than stated in HPI
Physical Exam
Vital Signs
Vital Signs
Temp Pulse Resp BP Pulse Ox
98.1 F 63 16 135/59 100
09/07/24 07:30 09/07/24 07:30 09/07/24 07:30 09/07/24 07:30 09/07/24 07:30
Lab Results
WBC 10.8 10^3/uL (4.8-10.8) 09/07/24 07:49
RBC 2.99 10^6/uL (4.70-6.10) L 09/07/24 07:49
Hgb 9.7 g/dL (13.0-18.0) L 09/07/24 07:49
Hct 30.1 % (39.0-52.0) L 09/07/24 07:49
Plt Count 134 10^3/uL (130-400) 09/07/24 07:49
Sodium 140 mmol/L (135-145) 09/07/24 14:02
Potassium 4.0 mmol/L (3.5-5.1) 09/07/24 14:02
Chloride 105 mmol/L (98-107) 09/07/24 14:02
Carbon Dioxide 27 mmol/L (22-30) 09/07/24 14:02
BUN 24 mg/dl (9-20) H 09/07/24 14:02
Creatinine 1.9 mg/dL (0.7-1.3) H 09/07/24 14:02
eGFR 34.57 09/07/24 14:02
Glucose 126 mg/dl (70-99) H 09/07/24 14:02
Calcium 8.8 mg/dl (8.4-10.2) 09/07/24 14:02
Albumin 3.5 g/dl (3.5-5.0) 09/07/24 07:[address] abd with IV contrast:
IMPRESSION:
Mild left hydroureteronephrosis and left perinephric/periureteral inflammatory fat stranding, which is of uncertain etiology. No evidence for an obstructing ureteral calculus. Findings again could be secondary to a recently passed calculus or an
ascending urinary tract infection. An occult distal ureteral stricture or neoplasm could also be considered. No CT evidence for pyelonephritis, perinephric fluid collection, or renal infarct.
Physical Exam
General: Awake, Alert, Oriented, AOx3, No Distress and Nontoxic
HEENT: EOMI, Anicteric, Conjunctivae Clear and Facial Symmetry
Respiratory: Clear, Normal Excursion and Nonlabored Respirations
Cardiac: S1/S2, Regular Rate/Rhythm and Murmur
Breast: Deferred by me
Abdomen: Soft, Nondistended and Other (mild TTP LLQ)
Musculoskeletal: No Cyanosis and Edema (trace chronic)
Skin: No Rash
Neuro: Nonfocal/Grossly Intact
Psych: Mood/afflect pleasant, Insight/judgement good and Appropriate
Data Reviewed
-
Radiology: Report Reviewed by me and Discussed with Patient
Labs: Labs Reviewed by me, Discussed with Nurse and Discussed with Patient
Assessment/Plan
-
IMP:
Severe left flank pain/urinary hesitancy unclear etiology possibly passed stone versus urethral stricture versus neoplasm
[id number] cr 1.8-2
CAD with history of stents
Essential hypertension
Type 2 diabetes
History of CVA
GERD
Sub nephrotic proteinuria
Plan:
A/w left flank pain, no clear etiology
suspect passed stone vs ureteral stricture- wants non urgent ureteroscopy
Pt wants to see different urologist
cr seem at baseline
note he received IV contrast 09/06-will need labs later this week
would hold HCTZ, cont ACEI for now
start flomax as recommneded before
hb is low-paraprotein w/u neg in January, check fe panel, b12 and folate -add to lab
he will need f/u with us in office, saw Dr Pascual before and lost f/u
pt aware of avoiding nephrotoxins
d/w pt and nursing
no objection to d/c
[2024-09-07 16:00] VITALS: BP 120/57
--- NOTE | 2024-09-07 16:18 | W.PN.UPDATE ---
Update Note
Progress Note Update
Creatinine unchanged at 1.9. Discussed with nephrology, who states that patient has chronic kidney disease, and his creatinine runs as high as 2.0 outpatient.
Cleared by nephrology for discharge, patient has been instructed to follow-up with nephrology in the office in 2-3 weeks.
[2024-09-07 17:40] LABS: Iron 51 ug/dl (49-181)
[2024-09-07 17:52] LABS: Percent Saturation 18 % (20-50); Total Iron Binding Capacity 278 ug/dl (261-462)
--- NOTE | 2024-09-07 17:57 | PTCARENOTE ---
Patient refused afternoon blood glucose check, he became very inpatient and stated he just wanted to get home. RN gave patient diabetes coordinator contact card and asked him to make an appointment with her for further diabetes education.
[2024-09-07 18:48] LABS: Folate 16.1 ng/ml (2.76-20); Vitamin B12 220 pg/ml (239-931)
== END 2024-09-07 18:36 | disposition home or self-care (01) ==
LOC: 3 WEST ACU 22:52
PROVIDERS: ADMITTING PHYSICIAN Hospitalist; ATTENDING PHYSICIAN Family Medicine; CONSULT PHYSICIAN Internal Medicine; CONSULT PHYSICIAN Specialist; EMERGENCY PHYSICIAN Emergency Medicine; FAMILY PHYSICIAN Family Medicine
DX: N13.2 Hydronephrosis with renal and ureteral calculous obstruction (principal); R10.9 Unspecified abdominal pain; R39.11 Hesitancy of micturition; I25.10 Atherosclerotic heart disease of native coronary artery without angina pectoris; I12.9 Hypertensive chronic kidney disease with stage 1 through stage 4 chronic kidney disease, or unspecified chronic kidney disease; N18.32 Chronic kidney disease, stage 3b; N17.9 Acute kidney failure, unspecified; K21.9 Gastro-esophageal reflux disease without esophagitis; E78.5 Hyperlipidemia, unspecified; E11.22 Type 2 diabetes mellitus with diabetic chronic kidney disease; Z95.5 Presence of coronary angioplasty implant and graft; Z82.49 Family history of ischemic heart disease and other diseases of the circulatory system; Z66 Do not resuscitate; Z88.0 Allergy status to penicillin; Z79.84 Long term (current) use of oral hypoglycemic drugs; Z79.82 Long term (current) use of aspirin; Z60.2 Problems related to living alone; Z86.73 Personal history of transient ischemic attack (TIA), and cerebral infarction without residual deficits
CPT/HCPCS: 74176; 74177; 80048; 80053; 81003; 81015; 82607; 82728; 82746; 82962; 83036; 83540; 83550; 85025; 93005; 96374; 96375; 96376; 99285; G0378; Q9967

== ENCOUNTER 2024-09-08 15:30 | Inpatient (IN) | payer MEDICARE, BC, SELFPAY ==
[2024-09-08] VITALS (10 sets, daily range): BP systolic 127–151; BP diastolic 60–114; BMI 28.8
--- NOTE | 2024-09-08 12:49 | ED.GENMED ---
History of Present Illness
General
Chief Complaint: Back Pain
Source: patient and family (Son)
Exam Limitations: none
Time Seen by Provider: 09/08/24 12:39
History of Present Illness
History of Present Illness:
Patient returns with recurrent severe left flank pain. Started 6 days ago. No trauma. No heavy lifting. No positional component. Was seen here 2 days ago twice and ultimately admitted. At that time noted to have a hydronephrosis and some
perinephric stranding of no definitive etiology. Pain had gone away in the hospital. However upon leaving the hospital last evening pain restarted and has become severe. No fever chills no abdominal pain no lower extremity numbness tingling or
weakness. No bowel or bladder issues.
Past History
Past History
ED Past Medical History: CAD, CVA (TIA), HTN, NIDDM and Other (Borderline Diabetes ); Negative NH
ED Past Surgical History: Cardiac (Stents)
Social History
Tobacco: Non-smoker
Alcohol: Occasional
Drug: None
Personal:
Living: with family
Employment: Retired
Family History
Family History: CAD
Review of Systems
Review of Systems
All Other Systems: Not applicable
Constitutional: Denies fever or chills
ABD/GI: Reports no symptoms
: Denies dysuria or frequency
Phy Exam
Physical Exam
Physical Exam:
GENERAL: Alert and oriented in no apparent distress
EYE: Orbits normal.
NECK: Supple
CARDIAC: Regular rate and rhythm without any obvious murmurs.
LUNGS: Clear breath sounds,normal
ABDOMEN: Soft, without focal tenderness or distention
NEUROLOGICAL: Alert and oriented , grossly non-focal
SKIN: Warm and dry, no rash or lesion, no discoloration, skin intact.
MUSCULOSKELETAL: No edema,no deformity.Good color. Good distal pulses and color. No pain with straight leg raising. No discomfort with twisting or turning or bending.
PSYCH: Normal and appropriate interaction.
Course
Orders/Labs/Results
Orders:
Orders
09/08/24 12:48
IV Insert/Care/Rem.- Treatment PRN
HYDROmorphone [Dilaudid] 0.5 mg IV NOW STA
Ondansetron Injectable [Zofran] 4 mg IV NOW STA
09/08/24 12:49
CT Abd/pel Without Iv Or Oral Urgent
Comment:
Reason For Exam: Recurrent severe left flank pain
09/08/24 13:04
CRP [C-Reactive Protein] Urgent
Complete Blood Count/With Diff Urgent
Comprehensive Metabolic Panel Urgent
ESR [Erythrocyte Sed Rate] Urgent
Lipase Urgent
Urinalysis Reflex To Culture Urgent
Date Specimen was Collected: 09/08/24
Time Specimen was Collected: 12:59
Urine Microscopic Reflex Cult Urgent
09/08/24 14:48
HYDROmorphone [Dilaudid] 0.5 mg IV NOW STA
09/08/24 Dinner
NPO
Allow oral meds: Yes
Allow clear liquids: Sips of Clears
09/08/24 15:12
Admit/Transfer Patient As Directed
Co-Sign Provider:
Level of Care: Inpatient admission
Assign to:: Medical/Surgical
Physician / Group: deyanira
Diagnosis: urethral stricture
Reason for Hospitalization: urethral stricture
Expected length of stay greater than two midnights?: Yes
ELOS- Estimated Length of Stay in days: 2
I certify the patient meets the requirements for IP care: Yes
09/08/24 15:13
Code Status As Directed
Resuscitation Status: Do not resuscitate
Reached after discussion with pt or family/Healthcare POA: Yes
DNR Bracelet Application ONCE
PRN Pain Medication Management As Directed
May give lesser potent ordered pain med per pt: Yes
preference::
Protocol:: Medication orders for pain may be administered in a
manner that supports deferring to patient preference
when the pt is:
- Requesting an ordered lesser potent pain medication.
Least to most potent pain medications are defined
as: acetaminophen < NSAID < tramadol < opioids
(morphine, oxycodone, hydromorphone).
- Requesting a lesser dose of the same medication IF
ORDERED.
- Requesting a less intrusive route of administration
if both routes are prescribed by the provider (PO <
IV).
09/08/24 17:23
0.9% Sodium Chloride 1000 ml [Nss] 1,000 ml IV 100 mls/hr
Dextrose 50%-Water [Dextrose 50% Syringe] 12.5 grams IV [id number] PRN
Glucagon [GlucaGen] 1 mg IM PRN PRN
HYDROmorphone [Dilaudid] 0.5 mg IV Q4HPRN PRN
Insulin Aspart Corrective Low [Novolog Flexpen-Low Resistance] See Protocol SC AC
09/08/24 17:23
UROLOGY CONSULT Routine
Consulting Provider: Haroon Elliott
Was physician already notified: Yes
Activity As Directed
Activity Level: As Tolerated
Bedside Glucose Monitoring As Directed
Frequency: AC&HS
Additional Instructions:: Change to q6h if pt on TPN, tube feeding or not eating
Pneumatic Compression Sleeves As Directed
Type: Knee high
Vital Signs As Directed
Frequency: Per unit guidelines
DX Deep Vein Thrombosis Video Routine
09/08/24 18:00
Pantoprazole [Protonix] 40 mg PO DAILY@1700
09/08/24 20:00
Carvedilol [Coreg] 3.125 mg PO BID
09/08/24 22:00
Aspirin Low Dose EC [Aspir Low (Enteric Coated)] 81 mg PO HS
Rosuvastatin Calcium [Crestor] 10 mg PO HS
09/09/24 06:00
Complete Blood Count/With Diff IN AM
Comprehensive Metabolic Panel IN AM
Glycohemoglobin (HgbA1c) IN AM
Abnormal Lab Results
09/08/24
13:04
WBC 11.6 H 10^3/uL
(4.8-10.8)
RBC 3.42 L 10^6/uL
(4.70-6.10)
Hgb 11.4 L g/dL
(13.0-18.0)
Hct 34.2 L %
(39.0-52.0)
MCV 100.0 H fL
(80.0-94.0)
MCH 33.3 H pg
(27.0-31.0)
MPV 10.6 H fL
(7.4-10.4)
Abs Immat Gran (auto) 0.1 H 10^3/uL
(0-0.05)
Absolute Neuts (auto) 9.5 H 10^3/uL
(1.4-6.5)
Immature Gran % 0.6 H %
(0-0.5)
Neutrophils % 82.2 H %
(42.2-75.2)
Lymphocytes % 11.3 L %
(20.5-51.1)
Carbon Dioxide 21 L mmol/L
(22-30)
BUN 25 H mg/dl
(9-20)
Creatinine 2.2 H mg/dL
(0.7-1.3)
Glucose 138 H mg/dl
(70-99)
Total Bilirubin 1.7 H mg/dl
(0.2-1.3)
C-Reactive Protein 18.30 H mg/L
(0.0-10.00)
Urine Ketones 2+ A
(Negative)
Ur Occult Blood Reflex 2+ A
(Negative)
Urine RBC 3-6 A /HPF
(0-2)
Urine Bacteria (Reflex) Few A
(Negative)
Urine Glucose 1+ A
(Negative)
Urine Albumin (Reflex) 1+ A
(Neg - Trace)
09/08/24 13:04
09/08/24 13:04
Vital Signs
Initial and Last Documented VS:
Initial Vital Signs
Temp Pulse Resp BP Pulse Ox
98 F 87 18 147/71 100
09/08/24 12:15 09/08/24 12:15 09/08/24 12:15 09/08/24 12:15 09/08/24 12:15
Last Documented Vital Signs
Temp Pulse Resp BP Pulse Ox
98.0 F 79 18 144/78 96
09/08/24 17:26 09/08/24 17:26 09/08/24 17:26 09/08/24 17:26 09/08/24 17:26
MDM/Problems Addressed
Differential Diagnosis Includes:
Patient with recurrent severe left flank pain. No obvious etiology apparently found in the hospital. Does not appear musculoskeletal. Not describing any spinal issue with no numbness tingling weakness. No infectious symptoms described. There
was inflammation noted around the left kidney. Will rescan check labs. There was a drop in his hemoglobin in the hospital. Pain management.
*Radiology
Radiology exam reviewed: radiology read reviewed (Obstruction left ureter likely distal ureter.)
*Pulse Oximetry
Patient hypoxic: no
*Critical Care Note
Total Time (30-74mins, 75-104mins- exclusive of procedures): Not Applicable
Data Reviewed
Review of Other/Old Records Reveals: Labs, Records, Radiology Studies, Testing and Progress Notes
Update Note
Update Note:
Discussed with urology and hospitalist.
ED Attending Note
-
Portions of this chart may have been created with voice recognition software.� Occasional wrong word or��sound alike� substitutions may have occurred due to the inherent limitations of voice recognition software.
Discharge Plan
Departure
Patient Disposition: Admit
Date of Disposition: 09/08/24
Time of Disposition: 14:39
Presentation/result/management discussed w/ accepting MD/DO: urology
Discharge Problem:
Severe left flank pain, Distal ureteral obstruction
Interventions
Interventions:
*Risk Screen - Suicide Last Done: 09/08/24 13:10
*General Assessment Last Done: 09/08/24 13:11
*Neglect/Abuse Screening Last Done: 09/08/24 13:10
*ED COVID-19 Vaccine History Last Done: 09/08/24 12:17
*Nursing Disposition Last Done: 09/08/24 17:11
ED-Musculoskeletal Assessment Last Done: 09/08/24 16:03
Discharge Date and Time
Discharge Date/Time: 09/08/24 17:13
[2024-09-08] MEDS: DILAUDID 0.5 MG IV ×4 (13:05→22:17)
[2024-09-08] MEDS: ZOFRAN 4 MG IV (13:07)
[2024-09-08 13:24] LABS: % Basophils 0.3 % (0-2); % Eosinophils 0.7 % (0-6); % Immature Granulocytes 0.6 % (0-0.5); % Lymphocytes 11.3 % (20.5-51.1); % Monocytes 4.9 % (1.7-9.3); % Neutrophils 82.2 % (42.2-75.2); Absolute Eosinophils 0.1 10^3/uL (0-0.7); Absolute Immature Granulocytes 0.1 10^3/uL (0-0.05); Absolute Lymphocytes 1.3 10^3/uL (1.2-3.4); Absolute Monocytes 0.6 10^3/uL (0.1-0.6); Absolute Neutrophils 9.5 10^3/uL (1.4-6.5); Hematocrit 34.2 % (39.0-52.0); Hemoglobin 11.4 g/dL (13.0-18.0); Mean Corp Hgb Conc. 33.3 g/dL (33.0-37.0); Mean Corpuscular Hgb 33.3 pg (27.0-31.0); Mean Platelet Volume 10.6 fL (7.4-10.4); Nucleated Red Blood Cells % 0 % (-); Platelet Count 142 10^3/uL (130-400); Red Blood Cell Count 3.42 10^6/uL (4.70-6.10); Red Cell Dist. Width 14.3 % (11.5-14.5); White Blood Cell Count 11.6 10^3/uL (4.8-10.8)
[2024-09-08 13:35] LABS: Urine Albumin 1+ (Neg - Trace); Urine Bilirubin Negative (Negative); Urine Character Clear (Clear); Urine Color Yellow; Urine Glucose 1+ (Negative); Urine Ketone 2+ (Negative); Urine Leukocyte Negative (Negative); Urine Nitrite Negative (Negative); Urine Occult Blood 2+ (Negative); Urine Specific Gravity 1.015 (<1.030); Urine Urobilinogen Negative (Neg - 1+)
[2024-09-08 13:40] LABS: ALT (SGPT) 21 U/L (0-50); AST (SGOT) 23 U/L (17-59); Albumin 4.2 g/dl (3.5-5.0); Alkaline Phosphatase 81 U/L (38-126); Blood Urea Nitrogen 25 mg/dl (9-20); Calcium 9.4 mg/dl (8.4-10.2); Carbon Dioxide 21 mmol/L (22-30); Chloride 104 mmol/L (98-107); Estimated Creatinine Clearance 25 ml/min; Glucose 138 mg/dl (70-99); Lipase 37 U/L (23-300); Sodium 140 mmol/L (135-145); Total Bilirubin 1.7 mg/dl (0.2-1.3); Total Protein 6.5 g/dl (6.3-8.2); eGFR 28.99
[2024-09-08 14:11] LABS: Urine Urothelial Cell 0-2 /LPF (FEW)
[2024-09-08 14:12] LABS: Urine Bacteria Few (Negative)
[2024-09-08 14:52] LABS: Erythrocyte Sed Rate 18 mm/hour (0-20)
--- NOTE | 2024-09-08 15:16 | HPS.HSE ---
Family Physician
-
Family Physician: Brayden Montgomery
Chief Complaint
-
left flank pain
History of Present Illness
84-year-old male past medical history of CAD status post stent, hypertension, diabetes, CVA, presenting for severe recurrent left flank pain.
He came to the emergency room 2 days ago for the same symptoms associated nausea and vomiting. He had a CT scan which showed mild hydroureteronephrosis and left perinephric/periureteral inflammatory fat stranding cardiology possibly passed stone
versus ureteral stricture versus neoplasm. He was seen by urology recommended outpatient left ureteroscopy due to suspected passed stone.
He denies any fevers or chills, nausea vomiting or diarrhea, urinary symptoms.
Medical History
Past Medical History
Past Medical History: Reports Other (CAD status post stent, hypertension, diabetes, CVA,)
Past Surgical History: Reports Other ((Stents))
Social History
Tobacco: Non-smoker
Alcohol: None
Drug: None
Family History
Family History: Not pertinent
Allergies / Home Medications
Allergies reflects when Allergies were last updated in [employer].
Home Medications with original date entered in [facility]
Allergy/Medication List:
Allergies
Allergy/AdvReac Type Severity Reaction Status Date / Time
Penicillins Allergy Unknown Verified 09/08/24 12:20
Home Medications
aspirin 81 mg tablet,delayed release 81 mg PO HS Blood Clot Prevention/Tx 01/10/16
carvedilol 3.125 mg tablet 3.125 mg PO BID #60 tabs 01/13/16
esomeprazole magnesium 40 mg capsule,delayed release (Nexium) 40 mg PO DAILY@1700 takes 1 hour before dinne 11/06/17
lisinopril 40 mg tablet 20 mg (1/2 x 40 mg) PO DAILY Blood Pressure #0 tabs 09/07/24
metformin 500 mg tablet 500 mg PO BID Diabetes 09/07/24
rosuvastatin 40 mg tablet 40 mg PO HS High Cholesterol 09/07/24
hydrocodone 5 mg-acetaminophen 325 mg tablet 2 tab PO Q6HPRN PRN severe pain 09/08/24
Review of Systems
-
History Source: Patient
A 12 point ROS was completed and negative except as noted: Yes
Constitutional: Reports No Symptoms
EENT: Reports No Symptoms
Respiratory: Reports No Symptoms
Cardiac: Reports No Symptoms
Abdomen/GI: Reports No Symptoms
: Reports No Symptoms
Musculoskeletal: Reports No Symptoms
Skin: Reports No Symptoms
Neurological: Reports No Symptoms
Endocrine: Reports No Symptoms
Hematologic/Lymphatic: Reports No Symptoms
Psych: Reports No Symptoms
Physical Exam
Vital Signs
Vital Signs
Temp Pulse Resp BP Pulse Ox
98.0 F 74 18 135/70 100
09/08/24 12:17 09/08/24 14:00 09/08/24 12:17 09/08/24 14:00 09/08/24 13:04
Physical Exam
General: Well Developed, Well Nourished and No Apparent Distress
HEENT: NormoCephalic, Moist mucous membranes and Atraumatic
Respiratory: Clear
Cardiac: S1/S2 and Regular Rhythm; No Murmur or Rub
GI: Soft, Non Distended, Normal Bowel Sounds and Tender; No Organomegaly
Rectal: Deferred by Provider
Musculoskeletal: No Clubbing, No Cyanosis and No Edema
Skin: No Rash
Neuro: Nonfocal/grossly intact
Laboratory Results
-
09/08/24 13:04
09/08/24 13:04
Laboratory Results
Total Bilirubin 1.7 mg/dl (0.2-1.3) H 09/08/24 13:04
AST 23 U/L (17-59) 09/08/24 13:04
ALT 21 U/L (0-50) 09/08/24 13:04
Alkaline Phosphatase 81 U/L (38-126) 09/08/24 13:04
Lipase 37 U/L (23-300) 09/08/24 13:04
Data Reviewed
-
Lab Data: Labs Reviewed by me
Old Records: Reviewed
Impression/Plan
-
IMPRESSION:
PLAN:
# Severe recurrent left flank pain/urinary hesitancy unclear etiology likely ureteral stricture inflammatory or neoplastic
-CT scan today shows obstruction of the distal third left ureter with residual contrast in the left renal collecting system likely related to stricture
-Prior CT abdomen pelvis shows mild left hydroureteronephrosis and left perinephric/periureteral inflammatory fat stranding clear urology, no evidence for obstructing ureteric calculus. Could be secondary to recently passed calculus or ascending
urinary tract infection versus occult distal ureteral stricture or neoplasm. No evidence of pyelonephritis, perinephric fluid collection or renal infarct
-Urology recommended nonurgent left ureteroscopy last time
-IV fluids
-Dilaudid
-N.p.o. for now
-Urology consulted
# Worsening STEVIE on CKD secondary to recent IV contrast from CT scan
-Creatinine up to 2.2 from 1.9
-IV fluids
-Hold hydrochlorothiazide, lisinopril, metformin
-Avoid NSAIDs
CAD with history of stents
-Continue aspirin, statin
Essential hypertension
-Continue Coreg
-No longer on amlodipine
Type 2 diabetes
-Hold metformin
-Insulin sliding scale
History of CVA
GERD
-Continue PPI
DNR/DNI
DVT prophylaxis�SCDs
N.p.o.
--- NOTE | 2024-09-08 17:06 | W.PN.URO.CBU ---
Today's Communication / Plan
-
Discussed with patient, son, ER staff
Will proceed to cystoscopy and left ureteroscopy and possible RGP, ureteral biopsy and stent placement 09/09/24
Admit for pain management
Keep NPO after midnight
Assessment / Plan
-
Left distal ureteral obstruction of unclear etiology: passed stone v. stricture v. malignancy
Left renal colic
Diagnosis
-
Date of Service: September 08, 2024
-
Patient Diagnosis:
Left flank pain
Left distal ureteral obstruction of uncertain etiology
Family history of kidney stones: none personally
No gross hematuria, dysuria, fever, chills, nausea
---
CT scan today redemonstrates evidence of left hydroureteronephrosis above the level of the left distal ureter w/o evidence of stone or nitish mass first seen by CT scan09/06/24: both scans personally reviewed
Subjective
-
c/o left flank pain
Slow urine stream
Objective
-
Vital Signs
Temp Pulse Resp BP Pulse Ox
98.0 F 69 18 138/60 100
09/08/24 12:17 09/08/24 16:00 09/08/24 12:17 09/08/24 16:00 09/08/24 13:04
Laboratory Results
09/08/24 13:04
09/08/24 13:04
CT scans from 09/06/24 and 09/08/24 personally reviewed
Review of Systems
-
Constitutional: No Symptoms
Respiratory: No Symptoms
Cardiac: No Symptoms
Abdomen/GI: Abdominal Pain
: Other (slow stream)
Musculoskeletal: No Symptoms
Skin: No Symptoms
Neurological: No Symptoms
Physical Exam
-
General - well nourished, no acute distress
Abdomen - soft, non-tender, left CVAT
Genitalia - normal
Skin - warm & dry with no rash
Neuro - AOx3, no motor deficits
Counseling
-
Risk of bleeding, infection, left ureteral injury and possible inability to access the left ureter discussed with patient and son
Written and verbal consent provided by patient
[2024-09-08] MEDS: NSS 1000 IV (17:47)
[2024-09-08] MEDS: PROTONIX 40 MG PO (17:52)
[2024-09-08 18:02] LABS: Glucose - Point of Care 103 mg/dl (70-99)
[2024-09-08] MEDS: COREG 3.125 MG PO (19:47)
[2024-09-08] MEDS: CRESTOR 10 MG PO (21:56)
[2024-09-08] MEDS: ASPIR LOW (ENTERIC COATED) 81 MG PO (21:56)
[2024-09-08 23:55] LABS: Glucose - Point of Care 101 mg/dl (70-99)
[2024-09-09] VITALS (11 sets, daily range): BP systolic 118–135; BP diastolic 55–99
[2024-09-09] MEDS: NSS 1000 IV ×3 (04:02→20:40)
[2024-09-09] MEDS: DILAUDID 0.5 MG IV ×3 (05:36→10:41)
[2024-09-09 06:09] LABS: Glucose - Point of Care 106 mg/dl (70-99)
[2024-09-09 07:59] LABS: % Basophils 0.4 % (0-2); % Eosinophils 2.8 % (0-6); % Immature Granulocytes 0.5 % (0-0.5); % Lymphocytes 15.8 % (20.5-51.1); % Monocytes 9.7 % (1.7-9.3); % Neutrophils 70.8 % (42.2-75.2); Absolute Eosinophils 0.2 10^3/uL (0-0.7); Absolute Lymphocytes 1.3 10^3/uL (1.2-3.4); Absolute Monocytes 0.8 10^3/uL (0.1-0.6); Hematocrit 29.9 % (39.0-52.0); Hemoglobin 9.8 g/dL (13.0-18.0); Mean Corp Hgb Conc. 32.8 g/dL (33.0-37.0); Mean Corpuscular Hgb 33.1 pg (27.0-31.0); Mean Platelet Volume 10.3 fL (7.4-10.4); Nucleated Red Blood Cells % 0 % (-); Platelet Count 115 10^3/uL (130-400); Red Blood Cell Count 2.96 10^6/uL (4.70-6.10); Red Cell Dist. Width 14.1 % (11.5-14.5); White Blood Cell Count 8.5 10^3/uL (4.8-10.8)
[2024-09-09] MEDS: COREG 3.125 MG PO ×2 (08:00→20:41)
[2024-09-09 09:47] LABS: ALT (SGPT) 17 U/L (0-50); AST (SGOT) 17 U/L (17-59); Albumin 3.3 g/dl (3.5-5.0); Alkaline Phosphatase 62 U/L (38-126); Blood Urea Nitrogen 26 mg/dl (9-20); Calcium 8.5 mg/dl (8.4-10.2); Carbon Dioxide 22 mmol/L (22-30); Chloride 107 mmol/L (98-107); Estimated Creatinine Clearance 24 ml/min; Glucose 93 mg/dl (70-99); Potassium 3.8 mmol/L (3.5-5.1); Sodium 142 mmol/L (135-145); Total Bilirubin 1.5 mg/dl (0.2-1.3); Total Protein 5.6 g/dl (6.3-8.2); eGFR 27.49
[2024-09-09] MEDS: ZOFRAN 4 MG IV (10:41)
--- NOTE | 2024-09-09 11:32 | CM ---
Patient seen bedside.
IA completed.
Patient lives alone in a 2 story home.
Independent prior to admission without assistive devices.
Patient drives.
Son Eamon will transport home.
OR today for Ureteroscopy.
PCP: Ulises
Pharmacy: [facility]
Plan: home no needs anticipated. son will transport.
--- NOTE | 2024-09-09 11:46 | PTCARENOTE ---
c/o pain 05/30, d notified, Dilaudid order changed to PRN Q3H, pain medication administered and patient started c/o nausea. IV Zofran given. off the unit to OR for Urethroscopy, phone report given to OR nurse. CHG wipes completed prior patient
leaving RAC IV intact, maintenance fluids on hold.
--- NOTE | 2024-09-09 13:00 | W.IMMPOSTOP ---
Surgical Immed Post Op Note
-
Primary Surgeon: Alvaro
Pre-op Diagnosis: Left hydroureteronephrosis of uncertain etiology with intractable pain
Post-op Diagnosis: Left hydroureteronephrosis due to suspected sloughed renal papilla
Procedure Performed: Left Ureteroscopy/biopsy/stenting
Anesthesia Type: gen
Specimen / Cultures: soft tissue + blood from left kidney's collecting system + calcareous material from bladder
Estimated Blood Loss: 7 ml
Complications: none
Operative Findings: calcareous material within bladder; soft tissue amidst blood within left kidney's collecting system
Left Ureteral stent placed: 6 Fr, 24 cm
son apprised
[2024-09-09 13:16] LABS: Glucose - Point of Care 103 mg/dl (70-99)
--- NOTE | 2024-09-09 14:37 | W.PN.HOSP.TC ---
Today's Communication/Plan
-
see bold
Assessment / Plan
Assessment / Plan
# Severe recurrent left flank pain/urinary hesitancy unclear etiology likely ureteral stricture inflammatory or neoplastic
CT scan shows obstruction of the distal third left ureter with residual contrast in the left renal collecting system likely related to stricture
Prior CT abdomen pelvis shows mild left hydroureteronephrosis and left perinephric/periureteral inflammatory fat stranding clear urology, no evidence for obstructing ureteric calculus. Could be secondary to recently passed calculus or ascending
urinary tract infection versus occult distal ureteral stricture or neoplasm. No evidence of pyelonephritis, perinephric fluid collection or renal infarct
Appreciate urology input, 09/09/2024 cystoscopy shows Left hydroureteronephrosis due to suspected sloughed renal papilla, left ureteral stent placed
# Worsening STEVIE on CKD secondary to recent IV contrast from CT scan
-Creatinine up to 2.3 from 1.9 (baseline 1.8-2.0)
-Hold lisinopril, metformin
-IV fluids, trend Cr
-Avoid NSAIDs
CAD with history of stents
-Continue aspirin, statin
Essential hypertension
-Continue Coreg. Holding lisinopril.
-No longer on amlodipine, HCTZ
Type 2 diabetes
-Hold metformin
-Insulin sliding scale
History of CVA
GERD
-Continue PPI
DVT prophylaxis�SCDs
DNR
Total time spent to see the patient on the floor, examine the patient, review data and lab results, discuss treatment plan with patient, nursing staff around 38 minutes.
Physical Exam
General: Obese, No acute distress
HEENT: Normocephalic, Atraumatic, EOMI, MMM
Respiratory: Clear to Auscultation bilaterally
Cardiac: Normal S1/S2, Regular Rate and Rhythm
GI: Soft, Nontender, Nondistended, Normal Bowel Sounds
Extremities: No Clubbing, Cyanosis, or Edema
Neuro: Nonfocal/Grossly Intact
Anticipated Discharge: Within 24 hours
Subjective/Interval History
-
Date of Service: September 09, 2024
Patient complains of severe left-sided flank pain
Objective Data
-
Labs:
Laboratory Results
09/09/24
07:23
WBC 8.5
Hgb 9.8 L
Hct 29.9 L
Plt Count 115 L
Sodium Pending
Potassium Pending
Chloride Pending
Carbon Dioxide Pending
BUN Pending
Creatinine Pending
Glucose Pending
Calcium Pending
Total Bilirubin Pending
AST Pending
ALT Pending
Alkaline Phosphatase Pending
Vital Signs:
Vital Signs
Temp Pulse Resp BP Pulse Ox
98.0 F 69 18 132/59 96
09/09/24 07:30 09/09/24 07:30 09/09/24 07:30 09/09/24 07:30 09/09/24 07:30
I&O
09/08/24 09/09/24 09/10/24
06:59 06:59 06:59
Intake Total 1200 / 1200
Balance 1200 / 1200
[2024-09-09 16:28] LABS: Glucose - Point of Care 202 mg/dl (70-99)
[2024-09-09] MEDS: PROTONIX 40 MG PO (16:34)
[2024-09-09] MEDS: NOVOLOG FLEXPEN-LOW RESISTANCE SC (16:39)
[2024-09-09] MEDS: CRESTOR 10 MG PO (20:41)
[2024-09-09] MEDS: ASPIR LOW (ENTERIC COATED) 81 MG PO (20:41)
[2024-09-09 23:10] LABS: Glucose - Point of Care 246 mg/dl (70-99)
[2024-09-10 07:19] LABS: Glucose - Point of Care 183 mg/dl (70-99)
[2024-09-10 08:00] VITALS: BP 127/67
--- NOTE | 2024-09-10 09:51 | W.PN.URO.CBU ---
Today's Communication / Plan
-
fit for discharge from standpoint
Assessment / Plan
-
urologically improved
Diagnosis
-
Date of Service: September 10, 2024
-
Patient Diagnosis:
Left hydroureteronephrosis -- sloughed renal papilla appears to be most likely etiology
s/p Left ureteroscopy, biopsy, stenting 09/09
POD: 1
Subjective
-
'much better . . . it only hurts a little in my kidney when I pee'
Objective
-
Vital Signs
Temp Pulse Resp BP Pulse Ox
97.2 F 60 22 127/67 96
09/10/24 08:00 09/10/24 08:00 09/10/24 08:00 09/10/24 08:00 09/10/24 08:00
Intake and Output
09/09/24 09/10/24 09/11/24
06:59 06:59 06:59
Intake Total 1200 / 1200 3120 / 3120
Output Total 600 / 600
Balance 1200 / 1200 2520 / 2520
Intake:
Oral fluids 960 / 960
IV fluids (Total) 1200 / 1200 2160 / 2160
Output:
Urine, Voided 600 / 600
Other:
Number of approximated MODERATE 2 2
amounts of urine
Laboratory Results
09/09/24 07:23
09/09/24 07:23
Physical Exam
-
General - well developed, well nourished, no acute distress
[2024-09-10] MEDS: COREG 3.125 MG PO ×2 (10:13→21:07)
[2024-09-10] MEDS: NOVOLOG FLEXPEN-LOW RESISTANCE 1 UNITS SC ×3 (10:14→18:54)
--- NOTE | 2024-09-10 10:18 | CM ---
Patient seen bedside, on phone with nephew. Patient reports no needs to CM, hopeful for discharge. Patient reports his son or nephew should hopefully be able to assist with transport home, son was called in Jury duty. Patient reports he is
ambulatory without any device, discussed patient paying for uber/lyft if needed. IMM reviewed, signed, placed in chart. CM will continue to follow for all discharge planning needs.
Plan; home no needs, family likely to transport.
[2024-09-10 11:09] LABS: Hematocrit 27.3 % (39.0-52.0); Hemoglobin 9.1 g/dL (13.0-18.0); Mean Corp Hgb Conc. 33.3 g/dL (33.0-37.0); Mean Corpuscular Hgb 32.9 pg (27.0-31.0); Mean Corpuscular Volume 98.6 fL (80.0-94.0); Mean Platelet Volume 10.1 fL (7.4-10.4); Platelet Count 112 10^3/uL (130-400); Red Blood Cell Count 2.77 10^6/uL (4.70-6.10); Red Cell Dist. Width 14.3 % (11.5-14.5); White Blood Cell Count 11.5 10^3/uL (4.8-10.8)
[2024-09-10 11:32] VITALS: BP 93/63
[2024-09-10 11:35] LABS: Blood Urea Nitrogen 37 mg/dl (9-20); Calcium 8.4 mg/dl (8.4-10.2); Carbon Dioxide 21 mmol/L (22-30); Chloride 107 mmol/L (98-107); Estimated Creatinine Clearance 25 ml/min; Glucose 191 mg/dl (70-99); Sodium 139 mmol/L (135-145); eGFR 28.99
[2024-09-10 12:06] LABS: Glucose - Point of Care 193 mg/dl (70-99)
[2024-09-10] MEDS: SODIUM BICARBONATE 1075 MEQ IV (12:58)
[2024-09-10 15:02] VITALS: BP 137/66
[2024-09-10 16:56] LABS: Glucose - Point of Care 152 mg/dl (70-99)
--- NOTE | 2024-09-10 17:08 | W.PN.HOSP.TC ---
Today's Communication/Plan
-
Start IV fluids, trend creatinine
Discharge tomorrow if creatinine improved
Assessment / Plan
Assessment / Plan
# Severe recurrent left flank pain/urinary hesitancy unclear etiology likely ureteral stricture inflammatory or neoplastic
CT scan shows obstruction of the distal third left ureter with residual contrast in the left renal collecting system likely related to stricture
Prior CT abdomen pelvis shows mild left hydroureteronephrosis and left perinephric/periureteral inflammatory fat stranding clear urology, no evidence for obstructing ureteric calculus. Could be secondary to recently passed calculus or ascending
urinary tract infection versus occult distal ureteral stricture or neoplasm. No evidence of pyelonephritis, perinephric fluid collection or renal infarct
Appreciate urology input, 09/09/2024 cystoscopy shows Left hydroureteronephrosis due to suspected sloughed renal papilla, left ureteral stent placed
Follow-up with urology in the office in 2-3 weeks
# Worsening STEVIE on CKD secondary to recent IV contrast from CT scan
-Creatinine 2.2, was 2.3 from 1.9 (baseline 1.8-2.0)
-Hold lisinopril, metformin
-IV fluids, trend Cr
-Avoid NSAIDs
CAD with history of stents
-Continue aspirin, statin
Essential hypertension
-Continue Coreg. Holding lisinopril.
-No longer on amlodipine, HCTZ
Type 2 diabetes
-Hold metformin
-Insulin sliding scale
History of CVA
GERD
-Continue PPI
DVT prophylaxis�SCDs
DNR
Total time spent to see the patient on the floor, examine the patient, review data and lab results, discuss treatment plan with patient, nursing staff around 39 minutes.
Physical Exam
General: Obese, No acute distress
HEENT: Normocephalic, Atraumatic, EOMI, MMM
Respiratory: Clear to Auscultation bilaterally
Cardiac: Normal S1/S2, Regular Rate and Rhythm
GI: Soft, Nontender, Nondistended, Normal Bowel Sounds
Extremities: No Clubbing, Cyanosis, or Edema
Neuro: Nonfocal/Grossly Intact
Anticipated Discharge: Within 24 hours
Subjective/Interval History
-
Date of Service: September 10, 2024
No recurrence of left flank pain. Patient feels so much better. No fever, no vomiting.
Objective Data
-
Labs:
Laboratory Results
09/10/24
10:54
WBC 11.5 H
Hgb 9.1 L
Hct 27.3 L
Plt Count 112 L
Sodium 139
Potassium 4.0
Chloride 107
Carbon Dioxide 21 L
BUN 37 H
Creatinine 2.2 H
Glucose 191 H
Calcium 8.4
Vital Signs:
Vital Signs
Temp Pulse Resp BP Pulse Ox
97.7 F 67 18 137/66 98
09/10/24 15:02 09/10/24 15:02 09/10/24 15:02 09/10/24 15:02 09/10/24 15:02
I&O
09/09/24 09/10/24 09/11/24
06:59 06:59 06:59
Intake Total 1200 / 1200 3120 / 3120
Output Total 600 / 600
Balance 1200 / 1200 2520 / 2520
[2024-09-10] MEDS: PROTONIX 40 MG PO (18:54)
[2024-09-10 21:06] VITALS: BP 135/71
[2024-09-10] MEDS: CRESTOR 10 MG PO (21:07)
[2024-09-10] MEDS: ASPIR LOW (ENTERIC COATED) 81 MG PO (21:07)
[2024-09-10 22:14] LABS: Glucose - Point of Care 187 mg/dl (70-99)
[2024-09-10 23:18] VITALS: BP 128/63
[2024-09-11] MEDS: SODIUM BICARBONATE 1075 MEQ IV (02:03)
[2024-09-11 07:00] VITALS: BP 113/80
[2024-09-11 07:09] LABS: Glucose - Point of Care 128 mg/dl (70-99)
[2024-09-11 07:57] LABS: Hematocrit 28.1 % (39.0-52.0); Hemoglobin 9.5 g/dL (13.0-18.0); Mean Corp Hgb Conc. 33.8 g/dL (33.0-37.0); Mean Corpuscular Hgb 33.5 pg (27.0-31.0); Mean Corpuscular Volume 98.9 fL (80.0-94.0); Mean Platelet Volume 10.8 fL (7.4-10.4); Platelet Count 113 10^3/uL (130-400); Red Blood Cell Count 2.84 10^6/uL (4.70-6.10); Red Cell Dist. Width 14.4 % (11.5-14.5); White Blood Cell Count 9.6 10^3/uL (4.8-10.8)
[2024-09-11 08:38] LABS: Blood Urea Nitrogen 35 mg/dl (9-20); Calcium 8.5 mg/dl (8.4-10.2); Carbon Dioxide 25 mmol/L (22-30); Chloride 107 mmol/L (98-107); Estimated Creatinine Clearance 29 ml/min; Glucose 114 mg/dl (70-99); Magnesium 1.8 mg/dl (1.6-2.3); Potassium 3.2 mmol/L (3.5-5.1); Sodium 142 mmol/L (135-145); eGFR 34.57
--- NOTE | 2024-09-11 08:47 | W.PN.HOSP.TC ---
Today's Communication/Plan
-
Discharge today
Assessment / Plan
Assessment / Plan
# Severe recurrent left flank pain/urinary hesitancy unclear etiology likely ureteral stricture inflammatory or neoplastic
CT scan shows obstruction of the distal third left ureter with residual contrast in the left renal collecting system likely related to stricture
Prior CT abdomen pelvis shows mild left hydroureteronephrosis and left perinephric/periureteral inflammatory fat stranding clear urology, no evidence for obstructing ureteric calculus. Could be secondary to recently passed calculus or ascending
urinary tract infection versus occult distal ureteral stricture or neoplasm. No evidence of pyelonephritis, perinephric fluid collection or renal infarct
Appreciate urology input, 09/09/2024 cystoscopy shows Left hydroureteronephrosis due to suspected sloughed renal papilla, left ureteral stent placed
Follow-up with urology in the office in 2-3 weeks
# Worsening STEVIE on CKD secondary to recent IV contrast from CT scan
-STEVIE resolved with IV fluid
-Creatinine now back to baseline at 1.9, was 2.2, was 2.3 from 1.9 (baseline 1.8-2.0)
-Avoid NSAIDs
-Resume lisinopril and metformin upon discharge
-Follow-up with nephrology in the office in 2-3 weeks
CAD with history of stents
-Continue aspirin, statin
Essential hypertension
-Continue Coreg. Resume lisinopril upon discharge
-No longer on amlodipine, HCTZ
Type 2 diabetes
-Resume metformin upon discharge
-Insulin sliding scale
History of CVA
GERD
-Continue PPI
DVT prophylaxis�SCDs
DNR
Physical Exam
General: Obese, No acute distress
HEENT: Normocephalic, Atraumatic, EOMI, MMM
Respiratory: Clear to Auscultation bilaterally
Cardiac: Normal S1/S2, Regular Rate and Rhythm
GI: Soft, Nontender, Nondistended, Normal Bowel Sounds
Extremities: No Clubbing, Cyanosis, or Edema
Neuro: Nonfocal/Grossly Intact
Anticipated Discharge: Today
Subjective/Interval History
-
Date of Service: September 11, 2024
No recurrence of left flank pain. Feels well, no nausea, no vomiting. No fever, no shortness of breath. No chest pain. Eager for discharge.
Objective Data
-
Labs:
Laboratory Results
09/11/24
07:32
WBC 9.6
Hgb 9.5 L
Hct 28.1 L
Plt Count 113 L
Sodium 142
Potassium 3.2 L
Chloride 107
Carbon Dioxide 25
BUN 35 H
Creatinine 1.9 H
Glucose 114 H
Calcium 8.5
Vital Signs:
Vital Signs
Temp Pulse Resp BP Pulse Ox
98.2 F 64 18 113/80 98
09/11/24 07:00 09/11/24 07:00 09/11/24 07:00 09/11/24 07:00 09/11/24 07:00
I&O
09/10/24 09/11/24 09/12/24
06:59 06:59 06:59
Intake Total 3120 / 3120 2640 / 2640
Output Total 600 / 600
Balance 2520 / 2520 2640 / 2640
--- NOTE | 2024-09-11 08:53 | W.PN.URO.CBU ---
Today's Communication / Plan
-
fit for d/c from standpoint
Assessment / Plan
-
urologically improved
renal function trending favorably
Diagnosis
-
Date of Service: September 11, 2024
-
Patient Diagnosis:
Post Op Day:
Patient Diagnosis:
Left hydroureteronephrosis -- sloughed renal papilla appears to be most likely etiology
s/p Left ureteroscopy, biopsy, stenting 09/09
POD: 2
Objective
-
Vital Signs
Temp Pulse Resp BP Pulse Ox
98.2 F 64 18 113/80 98
09/11/24 07:00 09/11/24 07:00 09/11/24 07:00 09/11/24 07:00 09/11/24 07:00
Intake and Output
09/10/24 09/11/24 09/12/24
06:59 06:59 06:59
Intake Total 3120 / 3120 2640 / 2640
Output Total 600 / 600
Balance 2520 / 2520 2640 / 2640
Intake:
Oral fluids 960 / 960 1440 / 1440
IV fluids (Total) 2160 / 2160 1200 / 1200
Output:
Urine, Voided 600 / 600
Other:
Number of approximated MODERATE 2 3
amounts of urine
Laboratory Results
09/11/24 07:32
09/11/24 07:32
Physical Exam
-
General - well developed, well nourished, no acute distress
Chest - clear bilaterally
Abdomen - soft, non-tender, positive bowel sounds, no CVAT, no incisional pain or distention
Genitalia - normal
Rectal - normal
Skin - warm & dry with no rash
Neuro - AOx3, no motor deficits
Extremities - no clubbing, no cyanosis, no edema
Incision - clean, dry
Dressing - clean, dry, intact
--- NOTE | 2024-09-11 10:45 | W.DCSUMMARY ---
Discharge Summary
Discharge Data
Date of Admission: 09/08/24
Date of Discharge: 09/11/24
-
Pending Results: No
Hospital Course
Discharge diagnosis:
Left hydroureteronephrosis secondary to sloughed renal papilla
Acute kidney injury superimposed on stage III chronic kidney disease
Hypokalemia
History of coronary artery disease
Essential hypertension
Type 2 diabetes
History of stroke
Gastroesophageal reflux disease
Consults: Urology
Procedures:
09/10/2024 cystoscopy with left ureteral stent placement
CT abd/pelvis:
There is obstruction in the distal third of the left ureter with residual contrast in the left renal collecting system. Obstruction appears likely related to a stricture which could be inflammatory or neoplastic. There is significant inflammation
along the course of the left ureter most pronounced in the distal third.
Hospital course:
84-year-old male with a past medical history of stage III CKD, CAD, CVA, GERD, diabetes, and hypertension who was readmitted for severe left-sided flank pain. CT of the abdomen and pelvis was concerning for left-sided ureteral stricture. Patient
was seen in conjunction with urology. He underwent cystoscopy with left ureteral stent placement on 09/10/2024. Urology suspects that the cause of his symptoms were secondary to sloughed left renal papilla.
Patient also had acute kidney injury superimposed on stage III chronic kidney disease from the contrast that he received from his CAT scan on 09/06/2024. His metformin, lisinopril were held. His hydrochlorothiazide was discontinued during the last
admission. He is no longer on amlodipine. He was continued on Coreg. He received IV fluids. His creatinine returned to his baseline of 1.9, down from 2.3. He can resume his metformin and lisinopril upon discharge.
Patient also had hypokalemia. This was repleted.
Patient did not have any recurrence of left-sided flank pain. He is medically stable and cleared by urology for discharge. He needs to follow-up with urology in the office in 2-3 weeks, nephrology in the office in 2-3 weeks, and his primary care
doctor in 1 week.
Disposition: Home self-care
Discharge planning: Required 39 minutes
Discharge Plan
-
Patient Disposition: Home (Routine Discharge)
Discharge Diagnosis/Procedures: Left hydroureteronephrosis, acute kidney injury superimposed on chronic kidney disease
Condition: Good
Diet: Low Fat and Low Cholesterol
Activity: As tolerated
Driving Restrictions: As prior to admission
Activity Restrictions/Additional Instructions:
You have chronic kidney disease.
Please avoid all [id number] NSAID medications such as ibuprofen, naproxen, Aleve, Motrin, Advil.
These medications will worsen your kidney function.
Please follow-up with your primary care doctor in 1 week.
Also follow-up with urology and nephrology in 2-3 weeks.
Referrals:
Louis John MD [Active] - (call to schedule 'stent removal' in 3-4 weeks)
Brayden Montgomery MD [Family Provider] -
Prescriptions:
Continued
aspirin 81 MG tablet,delayed release (DR/EC)
81 mg PO HS
esomeprazole magnesium [Nexium] 40 MG capsule,delayed release(DR/EC)
40 mg PO DAILY@1700
metformin 500 MG tablet
500 mg PO BID
rosuvastatin 40 mg tablet
40 mg PO HS
lisinopril 40 mg tablet
20 mg PO DAILY Qty: 0 0RF
hydrocodone-acetaminophen 5-325 mg Tablet
2 tab PO Q6HPRN PRN (Reason: severe pain)
carvedilol 3.125 MG tablet
3.125 mg PO BID
Discharge Orders:
Discharge Patient (As Directed); Ordered 09/11/24
Ordered By: Juan Antonio Ibarra
Discharge Date and Time
Discharge Date/Time: 09/11/24 11:57
Print Language: SALVADOREAN
--- NOTE | 2024-09-11 11:09 | CM ---
CM reviewed chart, patient for discharge today. Patient reports no needs to CM, reports son will provide transportation home. CM will continue to follow for all discharge planning needs.
Plan; home no needs.
[2024-09-11] MEDS: NOVOLOG FLEXPEN-LOW RESISTANCE SC (11:12)
[2024-09-11] MEDS: COREG 3.125 MG PO (11:14)
[2024-09-11] MEDS: KCL 40 MEQ PO (11:14)
[2024-09-11 11:49] VITALS: BP 137/70
--- NOTE | 2024-09-11 12:02 | PTCARENOTE ---
Rn rehab office coordinator- This nurse forgot to get discharge sheet signed by patient. Discharge instructions reviewed with patients, no questions asked.
== END 2024-09-11 11:57 | disposition home or self-care (01) | DRG 661 ==
LOC: 4 WEST ACU 15:30
PROVIDERS: Specialist; ADMITTING PHYSICIAN Hospitalist; ATTENDING PHYSICIAN Family Medicine; CONSULT PHYSICIAN Specialist; EMERGENCY PHYSICIAN Emergency Medicine; FAMILY PHYSICIAN Family Medicine
PROC: 0TB78ZX Excision of Left Ureter, Via Natural or Artificial Opening Endoscopic, Diagnostic (ICD-10-PCS; 2024-09-10)
PROC: 0T778DZ Dilation of Left Ureter with Intraluminal Device, Via Natural or Artificial Opening Endoscopic (ICD-10-PCS; 2024-09-10)
DX: N13.1 Hydronephrosis with ureteral stricture, not elsewhere classified (principal); N18.30 Chronic kidney disease, stage 3 unspecified; N17.9 Acute kidney failure, unspecified; I25.10 Atherosclerotic heart disease of native coronary artery without angina pectoris; Z95.5 Presence of coronary angioplasty implant and graft; Z86.73 Personal history of transient ischemic attack (TIA), and cerebral infarction without residual deficits; K21.9 Gastro-esophageal reflux disease without esophagitis; Z66 Do not resuscitate
CPT/HCPCS: 88305; 74176; 74177; 74420; 76000; 80048; 80053; 81003; 81015; 82607; 82728; 82746; 82962; 83036; 83540; 83550; 83690; 83735; 85025; 85027; 85652; 86140; 93005; 96361; 96374; 96375; 96376; 99284; 99285; C1894; C2617; G0378; J7030; Q9967